=== PATIENT | female | born 1985 | race Caucasian/White ===

== ENCOUNTER 2017-08-02 05:47 | Emergency (ER) | payer OTHER ==
--- NOTE | 2017-08-02 06:22 | ER ---
Nurse's Notes [facility] Name: Daisy Guevara Age: 31 yrs Sex: Female : 1985 Arrival Date: 08/02/2017 Time: 05:51 Bed 20 Private MD: Diagnosis: Dental Pain Presentation: 08/02 06:02 Presenting complaint: Patient states: she is having tooth abscess/swelling for 1 week. mg2 she took 1,200 mg of brufen \T\ 0400H. She had 2 doses of amoxicillin already. Transition of care: patient was not received from another setting of care. Onset of symptoms was July 27, 2017. Initial Sepsis Screen: Does the patient meet any 2 criteria? No. Patient's initial sepsis screen is negative. Does the patient have a suspected source of infection? No. Patient's initial sepsis screen is negative. Care prior to arrival: Medication(s) given: Motrin, 1200. 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 - Social history:: Smoking status: Patient uses tobacco products, few sticks a day. Screenin:11 Abuse screen: Denies threats or abuse. Denies injuries from another. Nutritional mg2 screening: No deficits noted. Tuberculosis screening: No symptoms or risk factors identified. Fall Risk None identified. Assessment: 06:08 General: Appears in no apparent distress. comfortable, Behavior is calm, cooperative. mg2 Pain: Complains of pain in tooth Pain does not radiate. Pain currently is 1 out of 10 on a pain scale. Quality of pain is described as heavy, pressure, Pain began 1 week ago Is intermittent, Alleviated by medications, Also complains of tooth abscess. Neuro: Level of Consciousness is awake, alert, obeys commands, Oriented to person, place, time. Cardiovascular: Capillary refill < 3 seconds Patient's skin is warm and dry. Respiratory: Airway is patent Respiratory effort is even, unlabored, Respiratory pattern is regular, symmetrical. GI: No signs and/or symptoms were reported involving the gastrointestinal system. : No signs and/or symptoms were reported regarding the genitourinary system. EENT: No signs and/or symptoms were reported regarding the EENT system. Derm: Skin is intact, Skin is pink, warm \T\ dry. normal. Musculoskeletal: No signs and/or symptoms reported regarding the musculoskeletal system. Vital Signs: 06:07 BP 128 / 85; Pulse 69; Resp 18; Temp 98.2; Pulse Ox 97% ; Weight 65.77 kg; Height 5 ft. mg2 7 in. (170.18 cm); Pain 04/07; 06:07 Body Mass Index 22.71 (65.77 kg, 170.18 cm) mg2 ED Course: 05:51 Patient arrived in ED. al2 06:02 Francesco Palafox, KACY is Primary Nurse. mg2 06:05 Triage completed. mg2 06:07 Jason Pepe PA is PHCP. cp 06:07 Eric Poe MD is Attending Physician. cp 06:08 Arm band placed on. mg2 06:13 Patient has correct armband on for positive identification. Bed in low position. Call mg2 light in reach. 06:35 No provider procedures requiring assistance completed. Patient did not have IV access mg2 during this emergency room visit. Administered Medications: No medications were administered Outcome: 06:22 Discharge ordered by . cp 06:34 Discharged to home ambulatory. mg2 06:34 Condition: stable 06:34 Discharge instructions given to patient, Instructed on discharge instructions, follow up and referral plans. Demonstrated understanding of instructions, follow-up care, medications, Prescriptions given X 2. 06:35 Patient left the ED. mg2 Signatures: Jason Pepe PA PA cp Love, Angelica al2 Francesco Palafox, RN RN mg2
--- NOTE | 2017-08-02 06:22 | EDPHYS ---
Physician Documentation [facility] Name: Daisy Guevara Age: 31 yrs Sex: Female : 1985 Arrival Date: 08/02/2017 Time: 05:51 Bed 20 Private MD: ED Physician Eric Poe HPI: 08/02 06:15 This 31 yrs old Female presents to ER via Ambulatory with complaints of cp Toothache. 06:15 The patient presents with pain. The problem is located in the left upper jaw. Onset: cp The symptoms/episode began/occurred gradually. Duration: The symptoms are continuous. Associated signs and symptoms: Pertinent negatives: anorexia, dysphagia, fever, inability to eat. Severity of symptoms: in the emergency department the symptoms are unchanged, despite home interventions. Patient reports she started taking Amoxicillin given to her by . 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 - Social history:: Smoking status: Patient uses tobacco products, few sticks a day. ROS: 06:17 Eyes: Negative for injury, pain, redness, and discharge. cp 06:17 Constitutional: Negative for body aches, chills, fever, poor PO intake. 06:17 ENT: Positive for dental pain, Negative for sore throat, difficulty swallowing, difficulty handling secretions. 06:17 Respiratory: Negative for cough, shortness of breath, wheezing. 06:17 Abdomen/GI: Negative for abdominal pain, nausea, vomiting, and diarrhea. 06:17 Skin: Negative for cellulitis, jaundice, swelling. 06:17 Neuro: Negative for altered mental status, headache. 06:17 All other systems are negative. Exam: 06:18 Head/Face: Normocephalic, atraumatic. cp 06:18 Constitutional: The patient appears in no acute distress, alert, awake, non-toxic, well developed, well nourished. 06:18 Eyes: Periorbital structures: appear normal, Conjunctiva: normal, no exudate, no injection, Sclera: no appreciated abnormality, Lids and lashes: appear normal, bilaterally. 06:18 ENT: External ear(s): are unremarkable, Ear canal(s): are normal, clear, TM's: bulging, is not appreciated, bilaterally, dullness, is not appreciated, bilaterally, erythema, is not appreciated, bilaterally, Nose: is normal, Mouth: Lips: moist, Oral mucosa: pink and intact, moist, Gums: normal with healthy appearance, Tongue: is normal, abscess, is not appreciated, Posterior pharynx: Airway: no evidence of obstruction, patent, Tonsils: are normal in appearance, Uvula: midline, swelling, is not appreciated, erythema, is not appreciated, exudate, is not appreciated, Dental exam: abscess, is not appreciated, dental caries, that is moderate, diffusely, fractured teeth are noted, specifically the upper left first molar (#14), pain, that is mild, specifically in the upper left first molar (#14) and upper left second molar (#15), Voice: is normal. 06:18 Neck: ROM/movement: is normal, is supple, without pain, no range of motions limitations, no meningismus, no nuchal rigidity, Lymph nodes: no appreciated lymphadenopathy. 06:18 Chest/axilla: Inspection: normal, Palpation: is normal, no crepitus, no tenderness. 06:18 Cardiovascular: Rate: normal, Rhythm: regular. 06:18 Respiratory: the patient does not display signs of respiratory distress, Respirations: cp normal, no use of accessory muscles, no retractions, no splinting, no tachypnea, Breath sounds: are clear throughout, no decreased breath sounds, no stridor, no wheezing. 06:18 Abdomen/GI: Exam negative for discomfort, distension, guarding, Inspection: abdomen appears normal. 06:18 Skin: cellulitis, is not appreciated, no rash present. Vital Signs: 06:07 BP 128 / 85; Pulse 69; Resp 18; Temp 98.2; Pulse Ox 97% ; Weight 65.77 kg; Height 5 ft. mg2 7 in. (170.18 cm); Pain 1/10; 06:07 Body Mass Index 22.71 (65.77 kg, 170.18 cm) mg2 MDM: 06:08 Patient medically screened. cp 06:15 Differential diagnosis: dental caries, gingivitis, dental abscess, pericoronitis, cp gingivostomatitis. 06:20 Data reviewed: vital signs, nurses notes, and as a result, I will discharge patient. cp 06:20 Counseling: I had a detailed discussion with the patient and/or guardian regarding: the cp historical points, exam findings, and any diagnostic results supporting the discharge/admit diagnosis, the need for outpatient follow up, for definitive care, a dentist, to return to the emergency department if symptoms worsen or persist or if there are any questions or concerns that arise at home. Administered Medications: No medications were administered Disposition: 08/02/17 06:22 Discharged to Home. Impression: Dental Pain. - Condition is Stable. - Discharge Instructions: Dental Pain. - Prescriptions for Amoxicillin 875 mg Oral Tablet - take 1 tablet by ORAL route every 12 hours for 10 days; 20 tablet. Naprosyn 500 mg Oral Tablet - take 1 tablet by ORAL route 2 times per day take with food; 500 tablet. - Medication Reconciliation Form, Thank You Letter, Antibiotic Education, Prescription Opioid Use form. - Follow up: Private Physician; When: Dentist, 1-2 days; Reason: Recheck today's complaints. Addendum: 08/08/2017 01:54 Co-signature as Attending Physician, Eric Poe MD. m a2 Signatures: Jason Pepe PA PA cp Eric Poe MD MD ma2 Francesco Palafox RN RN mg2 Corrections: (The following items were deleted from the chart) 08/02 06:35 06:22 08/02/2017 06:22 Discharged to Home. Impression: Dental Pain. Condition is mg2 Stable. Forms are Medication Reconciliation Form, Thank You Letter, Antibiotic Education, Prescription Opioid Use. Follow up: Private Physician; When: Dentist, 1-2 days; Reason: Recheck today's complaints. cp
[2017-08-02 06:39] VITALS: BP 128/85; TEMP 98.2; O2SAT 97
== END 2017-08-02 06:35 | disposition home or self-care (01) ==
LOC: ER 05:47
DX: S02.5XXA Fracture of tooth (traumatic), initial encounter for closed fracture (principal); Z91.012 Allergy to eggs; Z91.018 Allergy to other foods
CPT/HCPCS: 99282

== ENCOUNTER 2018-03-30 07:56 | Emergency (ER) | payer OTHER ==
--- NOTE | 2018-03-30 08:59 | ER ---
Nurse's Notes [facility] Name: Daisy Guevara Age: 32 yrs Sex: Female : 1985 Arrival Date: 03/30/2018 Time: 08:02 Bed 18 Private MD: Paul Cao Diagnosis: Dental caries;Dental caries, unspecified Presentation: 03/30 08:10 Presenting complaint: Patient states: "I have two abscesses because I have bad teeth, ss and the pain really isn't bothering me, but the fatigue. I feel like i'm walking through pudding and I'm worried about sepsis.". Denies fever. Transition of care: patient was not received from another setting of care. Onset of symptoms was March 29, 2017. Risk Assessment: Do you want to hurt yourself or someone else? Patient reports no desire to harm self or others. Initial Sepsis Screen: Does the patient meet any 2 criteria? No. Patient's initial sepsis screen is negative. Does the patient have a suspected source of infection? No. Patient's initial sepsis screen is negative. Care prior to arrival: None. 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 - Social history:: Smoking status: Patient uses tobacco products, smokes one-half pack cigarettes per day. - Ebola Screening: : Patient denies exposure to infectious person Patient denies travel to an Ebola-affected area in the 21 days before illness onset. - Family history:: not pertinent. Screenin:49 Abuse screen: Denies threats or abuse. Denies injuries from another. Nutritional sv screening: No deficits noted. Tuberculosis screening: No symptoms or risk factors identified. Fall Risk None identified. Assessment: 08:59 General: Appears in no apparent distress. Behavior is calm, cooperative. Pain: Pain hb currently is 2 out of 10 on a pain scale. Neuro: Level of Consciousness is awake, alert, obeys commands, Oriented to person, place, time, situation. Cardiovascular: Capillary refill < 3 seconds Patient's skin is warm and dry. Respiratory: Airway is patent Respiratory effort is even, unlabored, Respiratory pattern is regular, symmetrical. GI: No signs and/or symptoms were reported involving the gastrointestinal system. : No signs and/or symptoms were reported regarding the genitourinary system. EENT: Reports bilateral upper molar pain, bilateral facial swelling. Derm: Skin is intact, is healthy with good turgor. Musculoskeletal: No signs and/or symptoms reported regarding the musculoskeletal system. Vital Signs: 08:18 BP 141 / 90; Pulse 95; Resp 15; Temp 98.4(TE); Pulse Ox 99% on R/A; Weight 74.84 kg; ss Height 5 ft. 6 in. (167.64 cm); Pain 2/10; 08:18 Body Mass Index 26.63 (74.84 kg, 167.64 cm) ED Course: 08:02 Patient arrived in ED. sb2 08:02 Pual Cao DO is Private Physician. sb2 08:18 Arm band placed on right wrist. ss 08:20 Yaneth Rivera RN is Primary Nurse. sv 08:20 Jason Husain MD is Attending Physician. yadi 08:23 Triage completed. ss 08:48 ED physician to see patient. sv 08:49 Patient has correct armband on for positive identification. Bed in low position. Head sv of bed elevated. 08:58 Paul Cao DO is Referral Physician. yadi 08:59 No provider procedures requiring assistance completed. Patient did not have IV access hb during this emergency room visit. 09:00 Dandre Alicia DDS is Referral Physician. yadi Administered Medications: 08:57 Drug: Augmentin 875 mg Route: PO; hb 08:57 Drug: Motrin 600 mg Route: PO; hb Outcome: 08:59 Discharge ordered by . yadi 09:12 Patient left the ED. sv 09:12 Discharged to home ambulatory. sv 09:12 Condition: stable 09:12 Discharge instructions given to patient, Instructed on discharge instructions, follow up and referral plans. medication usage, Demonstrated understanding of instructions, follow-up care, medications, Prescriptions given X 2. Signatures: Yaneth iRvera RN RN sv Anderson, Corey, MD MD cha Smirch, Shelby, RN RN ss Emily Cueva, RN RN hb Kandy Guy sb2
--- NOTE | 2018-03-30 08:59 | EDPHYS ---
Physician Documentation [facility] Name: Daisy Guevara Age: 32 yrs Sex: Female : 1985 Arrival Date: 03/30/2018 Time: 08:02 Bed 18 Private MD: [facility] ED Physician Jason Husain HPI: 03/30 08:53 This 32 yrs old Female presents to ER via Ambulatory with complaints of yadi Toothache. 08:53 The patient presents with pain, swelling. The problem is located in the lower right yadi second molar and lower right third molar. Onset: The symptoms/episode began/occurred 2 day(s) ago. Duration: The symptoms are continuous, and are steadily getting worse. Modifying factors: The symptoms are alleviated by nothing, the symptoms are aggravated by chewing, talking. Associated signs and symptoms: The patient has no apparent associated signs or symptoms. Severity of symptoms: At their worst the symptoms were mild, in the emergency department the symptoms are unchanged. The patient has experienced similar episodes in the past, a few times. 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 - Social history:: Smoking status: Patient uses tobacco products, smokes one-half pack cigarettes per day. - Ebola Screening: : Patient denies exposure to infectious person Patient denies travel to an Ebola-affected area in the 21 days before illness onset. - Family history:: not pertinent. ROS: 08:53 Constitutional: Negative for fever, chills, and weight loss, Eyes: Negative for injury, yadi pain, redness, and discharge, Neck: Negative for injury, pain, and swelling, Cardiovascular: Negative for chest pain, palpitations, and edema, Respiratory: Negative for shortness of breath, cough, wheezing, and pleuritic chest pain, Abdomen/GI: Negative for abdominal pain, nausea, vomiting, diarrhea, and constipation, Back: Negative for injury and pain, : Negative for injury, bleeding, discharge, and swelling, MS/Extremity: Negative for injury and deformity, Skin: Negative for injury, rash, and discoloration, Neuro: Negative for headache, weakness, numbness, tingling, and seizure, Psych: Negative for depression, anxiety, suicide ideation, homicidal ideation, and hallucinations, Allergy/Immunology: Negative for hives, rash, and allergies, Endocrine: Negative for neck swelling, polydipsia, polyuria, polyphagia, and marked weight changes, Hematologic/Lymphatic: Negative for swollen nodes, abnormal bleeding, and unusual bruising. 08:53 ENT: Positive for dental pain. Exam: 08:53 Constitutional: This is a well developed, well nourished patient who is awake, alert, yadi and in no acute distress. Eyes: Pupils equal round and reactive to light, extra-ocular motions intact. Lids and lashes normal. Conjunctiva and sclera are non-icteric and not injected. Cornea within normal limits. Periorbital areas with no swelling, redness, or edema. Neck: Trachea midline, no thyromegaly or masses palpated, and no cervical lymphadenopathy. Supple, full range of motion without nuchal rigidity, or vertebral point tenderness. No Meningismus. Chest/axilla: Normal chest wall appearance and motion. Nontender with no deformity. No lesions are appreciated. Cardiovascular: Regular rate and rhythm with a normal S1 and S2. No gallops, murmurs, or rubs. Normal PMI, no JVD. No pulse deficits. Respiratory: Lungs have equal breath sounds bilaterally, clear to auscultation and percussion. No rales, rhonchi or wheezes noted. No increased work of breathing, no retractions or nasal flaring. Abdomen/GI: Soft, non-tender, with normal bowel sounds. No distension or tympany. No guarding or rebound. No evidence of tenderness throughout. Back: No spinal tenderness. No costovertebral tenderness. Full range of motion. Skin: Warm, dry with normal turgor. Normal color with no rashes, no lesions, and no evidence of cellulitis. MS/ Extremity: Pulses equal, no cyanosis. Neurovascular intact. Full, normal range of motion. Neuro: Awake and alert, GCS 15, oriented to person, place, time, and situation. Cranial nerves II-XII grossly intact. Motor strength 5/5 in all extremities. Sensory grossly intact. Cerebellar exam normal. Normal gait. Psych: Awake, alert, with orientation to person, place and time. Behavior, mood, and affect are within normal limits. 08:53 Head/face: Noted is tenderness, that is mild, of the right jaw. Vital Signs: 08:18 BP 141 / 90; Pulse 95; Resp 15; Temp 98.4(TE); Pulse Ox 99% on R/A; Weight 74.84 kg; ss Height 5 ft. 6 in. (167.64 cm); Pain 2/10; 08:18 Body Mass Index 26.63 (74.84 kg, 167.64 cm) ss MDM: 08:20 Patient medically screened. yadi 08:55 Data reviewed: vital signs, nurses notes. yadi Administered Medications: 08:57 Drug: Augmentin 875 mg Route: PO; hb 08:57 Drug: Motrin 600 mg Route: PO; hb Disposition: 03/30/18 08:59 Discharged to Home. Impression: Dental caries, Dental caries, unspecified. - Condition is Stable. - Discharge Instructions: Dental Abscess, Dental Caries, Adult, Dental Pain, Dental Pain, [id number], Diet and Dental Disease. - Prescriptions for Augmentin 875- 125 mg Oral Tablet - take 1 tablet by ORAL route every 12 hours for 10 days; 20 tablet. Tylenol- Codeine #3 300-30 mg Oral Tablet - take 2 tablet by ORAL route every 6 hours As needed; 30 tablet. - Medication Reconciliation Form, Thank You Letter, Antibiotic Education, Prescription Opioid Use form. - Follow up: Paul Cao DO; When: 2 - 3 days; Reason: Recheck today's complaints, Re-evaluation by your physician. Follow up: Dandre Alicia DDS; When: 1 - 2 days; Reason: Recheck today's complaints, Re-evaluation by your physician. - Problem is new. - Symptoms have improved. Signatures: Yaneth Rivera RN RN Jason Husain MD MD cha Smirch, Shelby, RN RN Emily Cueva RN RN Corrections: (The following items were deleted from the chart) 09:00 08:59 03/30/2018 08:59 Discharged to Home. Impression: Dental caries; Dental caries, yadi unspecified. Condition is Stable. Forms are Medication Reconciliation Form, Thank You Letter, Antibiotic Education, Prescription Opioid Use. Follow up: Paul Cao; When: 2 - 3 days; Reason: Recheck today's complaints, Re-evaluation by your physician. Problem is new. Symptoms have improved. [facility] 09:12 09:00 03/30/2018 08:59 Discharged to Home. Impression: Dental caries; Dental caries, sv unspecified. Condition is Stable. Discharge Instructions: Dental Abscess, Dental Caries, Adult, Dental Pain, Dental Pain, [id number], Diet and Dental Disease. Prescriptions for Augmentin 875-125 mg Oral Tablet - take 1 tablet by ORAL route every 12 hours for 10 days; 20 tablet, Tylenol-Codeine #3 300-30 mg Oral Tablet - take 2 tablet by ORAL route every 6 hours As needed; 30 tablet. and Forms are Medication Reconciliation Form, Thank You Letter, Antibiotic Education, Prescription Opioid Use. Follow up: Paul Cao; When: 2 - 3 days; Reason: Recheck today's complaints, Re-evaluation by your physician. Follow up: Dandre Alicia; When: 1 - 2 days; Reason: Recheck today's complaints, Re-evaluation by your physician. Problem is new. Symptoms have improved. [facility]
[2018-03-30] MEDS ORDERED: IBUPROFEN 200 MG TAB PO ONE (09:05)
[2018-03-30] MEDS ORDERED: AMOX/K CLAV 875 MG TAB ONE (09:05)
[2018-03-30 09:27] VITALS: BP 141/90; TEMP 98.4; O2SAT 99
== END 2018-03-30 09:12 | disposition home or self-care (01) ==
LOC: ER 07:56
DX: K02.9 Dental caries, unspecified (principal); E03.9 Hypothyroidism, unspecified; F17.210 Nicotine dependence, cigarettes, uncomplicated; Z91.012 Allergy to eggs
CPT/HCPCS: 99283

== ENCOUNTER 2019-04-23 16:35 | Emergency (ER) | payer OTHER ==
--- OUTSIDE RECORDS SUMMARY | 2019-04-23 16:37 | XMS REPORT ---
:1985 Author Organization [employer] Care Team Providers Name Role Phone Nash [facility] Provider Role Unavailable Allergies, Adverse Reactions, Alerts Substance Reaction Event Type N.K.D.A. Info Not Available Non Drug Allergy Problems Problem Type Condition Code Onset Dates Condition Status Problem Vitamin D deficiency E55.9 Active Problem Malaise and fatigue R53.81 Active Assessment Gingival nodule K06.8 Active Assessment Decay, teeth K02.9 Active Problem Noncompliance w/medication Z91.14 Active treatment due to intermit use of medication Problem Depression with anxiety F41.8 Active Problem Hypocalcemia E83.51 Active Problem Hyperlipidemia, mixed E78.2 Active Problem Hypothyroidism E03.9 Active Problem Attention deficit hyperactivity F90.9 Active disorder (ADHD), unspecified ADHD type Problem Tobacco use disorder F17.200 Active Medications Medication Code Code Instructions Start End Status Dosage System Date Date Hair Skin Nails [facility] [address] Active not defined Vitamin B12 [facility] [address] Active not defined BuPROPion HCl ER ND 61821436856 100 MG Orally Oct 22, Active 1 tablet (SR) Once a day 2019 in the morning Zoloft ND 67625074416 50 MG Orally Active 1 tablet Once a day Levothyroxine ND 29054397119 25 MCG Orally Active 1 tablet Sodium Once a day on an empty stomach in the morning Vyvanse ND 64614859826 30 MG Orally Oct 22, Active 1 capsule Once a day 2019 in the morning Simvastatin ND 43660866140 40 MG Orally Active 1 tablet Once a day in the evening Vitamin D3 [facility] [address] Active not defined Results No Known Results Summary Purpose [employer]Clinical[employer] Submission
--- OUTSIDE RECORDS SUMMARY | 2019-04-23 16:38 | XMS REPORT ---
:1985 Author Organization eClinicalWorks Care Team Providers Name Role Phone Nash [facility] Provider Role Unavailable Allergies, Adverse Reactions, Alerts Substance Reaction Event Type N.K.D.A. Info Not Available Non Drug Allergy Problems Problem Type Condition Code Onset Dates Condition Status Problem Vitamin D deficiency E55.9 Active Problem Malaise and fatigue R53.81 Active Problem Noncompliance w/medication Z91.14 Active treatment due to intermit use of medication Problem Depression with anxiety F41.8 Active Problem Hypocalcemia E83.51 Active Problem Hyperlipidemia, mixed E78.2 Active Problem Hypothyroidism E03.9 Active Problem Attention deficit hyperactivity F90.9 Active disorder (ADHD), unspecified ADHD type Problem Tobacco use disorder F17.200 Active Assessment Vitamin D deficiency E55.9 Active Assessment Malaise and fatigue R53.81 Active Assessment Adult BMI 27.0-27.9 kg/sq m Z68.27 Active Assessment Noncompliance w/medication Z91.14 Active treatment due to intermit use of medication Assessment Hyperlipidemia, mixed E78.2 Active Assessment 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 Assessment Tobacco use disorder F17.200 Active Assessment Depression with anxiety F41.8 Active Assessment Hypothyroidism E03.9 Active Assessment Attention deficit hyperactivity F90.9 Active disorder (ADHD), unspecified ADHD type Medications Medication Code Code Instructions Start End Status Dosage System Date Date Simvastatin ND 09090555871 40 MG Orally Active 1 tablet Once a day in the evening Vitamin D3 [facility] [address] Active not defined Vitamin B12 [facility] [address] Active not defined Vyvanse ND 58063060519 40 MG Orally Feb 14, Active 1 capsule Once a day 2018 in the morning CREELER Thyroid ND 03299227338 15 MG Orally Feb 14, Active 1 tablet Once a day 2018 on an empty stomach BuPROPion HCl ER ND 74796044450 100 MG Orally Active 1 tablet (SR) Once a day in the morning Zoloft ND 13365242584 50 MG Orally Active 1 tablet Once a day Hair Skin Nails [facility] [address] Active not defined Levothyroxine [facility] 89100990117 25 MCG Orally Inactive 1 tablet Sodium Once a day on an empty stomach in the morning Results No Known Results Summary Purpose eClinicalWorks Submission
--- OUTSIDE RECORDS SUMMARY | 2019-04-23 16:38 | XMS REPORT ---
:1985 Author Organization eClinicalWorks Care Team Providers Name Role Phone Cao, [facility] Provider Role Unavailable Allergies No Known Allergies Problems Problem Type Condition Code Onset Dates [...] use disorder F17.200 Active Medications Medication Code System Code Instructions Start End Date Status Dosage Date Tamiflu [facility] 04669787624 75 MG Orally Apr 19, Active 1 capsule Twice a day 2019 Results No Known Results Summary Purpose eClinicalWorks Submission
--- OUTSIDE RECORDS SUMMARY | 2019-04-23 16:38 | XMS REPORT ---
:1985 Author Organization eClinicalWorks Care Team Providers Name Role Phone Nash [facility] Provider Role Unavailable Allergies, Adverse Reactions, Alerts Substance Reaction Event Type N.K.D.A. Info Not Available Non Drug Allergy Problems Problem Type Condition Code Onset Dates Condition Status Problem Vitamin D deficiency E55.9 Active Problem Malaise and fatigue R53.81 Active Problem Noncompliance w/medication Z91.14 Active treatment due to intermit use of medication Assessment Statin intolerance Z78.9 Active Problem Depression with anxiety F41.8 Active Problem [...] Start End Status Dosage System Date Date Zoloft [facility] 02234335610 50 MG Orally Active 1 tablet Once a day Simvastatin ND 83443748658 40 MG Orally Active 1 tablet Once a day in the evening [employer] Thyroid ND 75593746996 15 MG Orally Inactive 1 tablet Once a day on an empty stomach BuPROPion HCl ND 14218126691 150 MG Orally Active 1 tablet ER (SR) Once a day in the morning Vitamin B12 [facility] [address] Active not defined Vyvanse ND 56107430254 60 MG Orally Apr 11, Active 1 capsule Once a day 2019 in the morning Hair Skin Nails [facility] [address] Active not defined Tirosint [facility] 04999174137 25 MCG Orally Mar 15 Active 1 capsule Once a day 2018 in the morning on an empty stomach Vitamin D3 [facility] [address] Active not defined Results No Known Results Summary Purpose eClinicalWorks Submission
--- OUTSIDE RECORDS SUMMARY | 2019-04-23 16:38 | XMS REPORT ---
:1985 Author Organization eClinicalWorks Care Team Providers Name Role Phone Nash [facility] Provider Role Unavailable Allergies No Known Allergies Problems Problem Type Condition Code Onset Dates Condition Status Problem Vitamin D deficiency E55.9 Active Problem Malaise and fatigue R53.81 Active Assessment Hyperlipidemia, mixed E78.2 Active Problem Noncompliance w/medication Z91.14 Active treatment due to intermit use of medication Problem Depression with anxiety F41.8 Active Problem Hypocalcemia E83.51 Active Problem Hyperlipidemia, mixed E78.2 Active Problem Hypothyroidism E03.9 Active Problem Attention deficit hyperactivity F90.9 Active disorder (ADHD), unspecified ADHD type Problem Tobacco use disorder F17.200 Active Medications Medication Code System Code Instructions Start End Date Status Dosage Date Tirosint [facility] 20193030000 25 MCG Orally Dec , Active 1 capsule Once a day 2018 in the morning on an empty stomach Results No Known Results Summary Purpose [employer] Submission
--- OUTSIDE RECORDS SUMMARY | 2019-04-23 16:38 | XMS REPORT ---
:1985 Author Organization eClinicalWorks Care Team Providers Name Role Phone Nash [facility] Provider Role Unavailable Allergies, Adverse Reactions, Alerts [...] Start End Status Dosage System Date Date [facility] 45444302685 50 MG Orally Mar 14, Active 1 capsule Once a day 2019 in the morning BuPROPion HCl ND 37256982112 100 MG Orally Active 1 tablet ER (SR) Once a day in the morning [employer] Thyroid [facility] 91522289868 15 MG Orally Active 1 tablet Once a day on an empty stomach Zoloft ND 35117543466 50 MG Orally Active 1 tablet Once a day Hair Skin Nails [facility] [address] Active not defined Vitamin B12 [facility] [address] Active not defined Vitamin D3 [facility] [address] Active not defined Simvastatin [facility] 59367014196 40 MG Orally Active 1 tablet Once a day in the evening Results No Known Results Summary Purpose eClinicalWorks Submission
--- OUTSIDE RECORDS SUMMARY | 2019-04-23 16:38 | XMS REPORT ---
:1985 Author Organization eClinicalWorks Care Team Providers Name Role Phone Cao, [facility] Provider Role Unavailable Allergies No Known Allergies [...] Problem Tobacco use disorder F17.200 Active Medications No Known Medications Results No Known Results Summary Purpose eClinicalWorks Submission
--- OUTSIDE RECORDS SUMMARY | 2019-04-23 16:38 | XMS REPORT ---
:1985 Author Organization eClinicalWorks Care Team Providers Name Role Phone Cao, [facility] Provider Role Unavailable Allergies No Known [...]
[2019-04-23] MEDS ORDERED: IPRATROPIUM BROM 0.5MG/2.5ML ONE (17:48)
[2019-04-23] MEDS ORDERED: ALBUTEROL 2.5 MG/3 ML NEB SOL ONE (17:48)
[2019-04-23] MEDS ORDERED: AMOX/K CLAV 875 MG TAB ONE (17:49)
--- NOTE | 2019-04-23 18:02 | ER ---
Nurse's Notes [facility] Name: Daisy Guevara Age: 33 yrs Sex: Female : 1985 Arrival Date: 04/23/2019 Time: 16:37 Bed 12 Private MD: Paul Cao Diagnosis: Acute sinusitis Presentation: 04/23 17:17 Presenting complaint: Patient states: sinus pressure, weakness, fatigue, green mucus ss from nose. Transition of care: patient was not received from another setting of care. Onset of symptoms was April 02, 2019. Risk Assessment: Do you want to hurt yourself or someone else? Patient reports no desire to harm self or others. Initial Sepsis Screen: Does the patient meet any 2 criteria? No. Patient's initial sepsis screen is negative. Does the patient have a suspected source of infection? No. Patient's initial sepsis screen is negative. Care prior to arrival: None. 17:17 Method Of Arrival: Ambulatory ss 17:17 Acuity: FLORINDA 4 ss Triage Assessment: 17:21 General: Appears in no apparent distress. Behavior is calm, cooperative. Pain: Denies ss pain. ADMINISTRATIVE TECH: 17:22 LMP 03/29/2019 ss Historical: - Allergies: 17:21 EGG/POULTRY; ss - PMHx: 17:21 Hypothyroidism; Depression; Anxiety; High Cholesterol; ss - PSHx: 17:21 Hernia repair; ss - Immunization history:: Adult Immunizations up to date. - Coronavirus screen:: The patient has NOT traveled to [place], [place], or [place] in the past 14 days. Proceed with normal triage process as indicated. The patient has NOT had contact with known/suspected case of Coronavirus? Proceed with normal triage procedures. - Social history:: Smoking status: Patient reports the use of cigarette tobacco products, smokes one-half pack cigarettes per day. - Ebola Screening: : Patient negative for fever greater than or equal to 101.5 degrees Fahrenheit, and additional compatible Ebola Virus Disease symptoms Patient denies exposure to infectious person Patient denies travel to an Ebola-affected area in the 21 days before illness onset No symptoms or risks identified at this time. Screenin:30 Abuse screen: Denies threats or abuse. Denies injuries from another. Nutritional ss screening: No deficits noted. Tuberculosis screening: Never had TB. Fall Risk None identified. Assessment: 17:30 General: Appears uncomfortable, ill, Behavior is calm, cooperative, Reports feeling ill ss for. Neuro: Level of Consciousness is awake, alert, obeys commands. Respiratory: Respiratory effort is even, unlabored, Respiratory pattern is regular, symmetrical. Respiratory: Breath sounds are coarse in left posterior lower lobe, right posterior middle lobe and right posterior lower lobe. GI: Patient currently denies diarrhea, vomiting. EENT: Nares are clear Oral mucosa is moist. Derm: Skin is intact, is healthy with good turgor, Skin is dry, Skin is pink, warm \T\ dry. normal. Vital Signs: 17:22 BP 140 / 90; Pulse 84; Resp 18; Temp 97.7; Pulse Ox 99% ; Weight 81.65 kg; Height 5 ft. ss 7 in. (170.18 cm); Pain 0/10; 17:22 Body Mass Index 28.19 (81.65 kg, 170.18 cm) ss ED Course: 16:37 Patient arrived in ED. as 16:38 Paul Cao DO is Private Physician. as 17:16 Arm band placed on right wrist. ss 17:18 Triage completed. ss 17:24 Arabella Vidal FNP-C is PHCP. kb 17:24 Krzysztof Peñaloza MD is Attending Physician. kb 17:30 Patient has correct armband on for positive identification. Bed in low position. Call ss light in reach. 17:49 Chloe Parikh, RN is Primary Nurse. ss 17:58 Chest Pa And Lat (2 Views) XRAY In Process Unspecified. EDMS 18:02 Paul Cao DO is Referral Physician. kb 18:35 No provider procedures requiring assistance completed. Patient did not have IV access ss during this emergency room visit. Administered Medications: 18:03 Drug: DuoNeb (3:1) (2.5 mg - 0.5 mg) 3 ml Route: Nebulizer; ss 18:37 Follow up: Response: No adverse reaction; No adverse reaction, patient denies SOB/ ss difficulty breathing 18:03 Drug: Augmentin 875 mg Route: PO; ss 18:37 Follow up: Response: Medication administered at discharge. ss Outcome: 18:02 Discharge ordered by . kb 18:35 Discharged to home ambulatory. ss 18:35 Condition: good 18:35 Discharge instructions given to patient, family, Instructed on discharge instructions, follow up and referral plans. medication usage, Demonstrated understanding of instructions, follow-up care, medications, Prescriptions given X 2. 18:37 Patient left the ED. ss Signatures: Dispatcher [employer] EDArabella Schwartz, DOCUMENT CONTROL ASSISTANT-C DOCUMENT CONTROL ASSISTANT-Andreia Ann Shelby, RN RN ss
--- NOTE | 2019-04-23 18:02 | EDPHYS ---
Physician Documentation [facility] Name: Daisy Guevara Age: 33 yrs Sex: Female : 1985 Arrival Date: 04/23/2019 Time: 16:37 Bed 12 Private MD: Nash [facility] ED Physician Krzysztof Peñaloza HPI: 04/23 17:51 This 33 yrs old Female presents to ER via Ambulatory with complaints of Sinus kb Congestion, Flu Symptoms. 17:51 The patient or guardian reports cough, that is intermittent, described as moderate, kb with no sputum, flu symptoms, low-grade fever, myalgias. Onset: The symptoms/episode began/occurred 3 week(s) ago. Severity of symptoms: At their worst the symptoms were moderate, in the emergency department the symptoms are unchanged. Modifying factors: The symptoms are alleviated by nothing, the symptoms are aggravated by nothing. Associated signs and symptoms: Pertinent positives: earache, fever, rhinorrhea, Pertinent negatives: chest pain, diarrhea, nausea, sore throat, vomiting. The patient has not experienced similar symptoms in the past. The patient has not recently seen a physician. Pt reports she has had a sinus infection for 3 weeks. States she was getting better, then it started getting worse. REports she was started on Tamiflu for the flu a few days ago, but the "flu symptoms" have gotten better. . 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 - Coronavirus screen:: The patient has NOT traveled to [place], [place], or [place] in the past 14 days. Proceed with normal triage process as indicated. The patient has NOT had contact with known/suspected case of Coronavirus? Proceed with normal triage procedures. - Social history:: Smoking status: Patient reports the use of cigarette tobacco products, smokes one-half pack cigarettes per day. - Ebola Screening: : Patient negative for fever greater than or equal to 101.5 degrees Fahrenheit, and additional compatible Ebola Virus Disease symptoms Patient denies exposure to infectious person Patient denies travel to an Ebola-affected area in the 21 days before illness onset No symptoms or risks identified at this time. ROS: 17:51 Neck: Negative for injury, pain, and swelling, Cardiovascular: Negative for chest pain, kb palpitations, and edema, Abdomen/GI: Negative for abdominal pain, nausea, vomiting, diarrhea, and constipation, Back: Negative for injury and pain, : Negative for injury, bleeding, discharge, and swelling, MS/Extremity: Negative for injury and deformity, Skin: Negative for injury, rash, and discoloration, Neuro: Negative for headache, weakness, numbness, tingling, and seizure. 17:51 Constitutional: Positive for body aches, fatigue, fever, malaise. 17:51 ENT: Positive for rhinorrhea, sinus congestion, sinus pain. 17:51 Respiratory: Positive for cough, Negative for dyspnea on exertion, hemoptysis, orthopnea, pleurisy, shortness of breath, sputum production, wheezing. Exam: 17:54 Constitutional: This is a well developed, well nourished patient who is awake, alert, kb and in no acute distress. Head/Face: Normocephalic, atraumatic. ENT: Nares patent. No nasal discharge, no septal abnormalities noted. Tympanic membranes are normal and external auditory canals are clear. Oropharynx with no redness, swelling, or masses, exudates, or evidence of obstruction, uvula midline. Mucous membranes moist. Neck: Trachea midline, no thyromegaly or masses palpated, and no cervical lymphadenopathy. Supple, full range of motion without nuchal rigidity, or vertebral point tenderness. No Meningismus. Chest/axilla: Normal chest wall appearance and motion. Nontender with no deformity. No lesions are appreciated. Cardiovascular: Regular rate and rhythm with a normal S1 and S2. No gallops, murmurs, or rubs. Normal PMI, no JVD. No pulse deficits. Abdomen/GI: Soft, non-tender, with normal bowel sounds. No distension or tympany. No guarding or rebound. No evidence of tenderness throughout. Back: No spinal tenderness. No costovertebral tenderness. Full range of motion. Skin: Warm, dry with normal turgor. Normal color with no rashes, no lesions, and no evidence of cellulitis. MS/ Extremity: Pulses equal, no cyanosis. Neurovascular intact. Full, normal range of motion. Neuro: Awake and alert, GCS 15, oriented to person, place, time, and situation. Cranial nerves II-XII grossly intact. Motor strength 5/5 in all extremities. Sensory grossly intact. Cerebellar exam normal. Normal gait. 17:54 Respiratory: the patient does not display signs of respiratory distress, Respirations: normal, Breath sounds: rhonchi, that are moderate, are heard in the right middle lobe, right lower lobe, right posterior middle lobe and right posterior lower lobe, wheezing: that is moderate, is heard in the right middle lobe, right lower lobe, right posterior middle lobe and right posterior lower lobe. Vital Signs: 17:22 BP 140 / 90; Pulse 84; Resp 18; Temp 97.7; Pulse Ox 99% ; Weight 81.65 kg; Height 5 ft. ss 7 in. (170.18 cm); Pain 0/10; 17:22 Body Mass Index 28.19 (81.65 kg, 170.18 cm) ss MDM: 17:24 Patient medically screened. kb 17:54 Data reviewed: vital signs, nurses notes. Data interpreted: Pulse oximetry: on room air kb is 99 %. Interpretation: normal. 18:01 Counseling: I had a detailed discussion with the patient and/or guardian regarding: the kb historical points, exam findings, and any diagnostic results supporting the discharge/admit diagnosis, radiology results, the need for outpatient follow up, a family practitioner, to return to the emergency department if symptoms worsen or persist or if there are any questions or concerns that arise at home. Special discussion: I discussed with the patient the need to follow-up with the PCP/specialist for the noted incidental finding on X-ray/CT scanning. 04/23 17:26 Order name: Chest Pa And Lat (2 Views) XRAY kb Administered Medications: 18:03 Drug: DuoNeb (3:1) (2.5 mg - 0.5 mg) 3 ml Route: Nebulizer; ss 18:37 Follow up: Response: No adverse reaction; No adverse reaction, patient denies SOB/ ss difficulty breathing 18:03 Drug: Augmentin 875 mg Route: PO; ss 18:37 Follow up: Response: Medication administered at discharge. ss Disposition: 21:13 Co-signature as Attending Physician, Krzysztof Peñaloza MD I agree with the assessment and kdr plan of care. Disposition: 04/23/19 18:02 Discharged to Home. Impression: Acute sinusitis. - Condition is Stable. - Discharge Instructions: Sinusitis, Adult, [id number]. - Prescriptions for Augmentin 875- 125 mg Oral Tablet - take 1 tablet by ORAL route every 12 hours for 10 days; 20 tablet. Albuterol Sulfate 90 mcg/actuation - inhale 1-2 puff by INHALATION route every 4-6 hours; 1 Inhaler. - Medication Reconciliation Form, Thank You Letter, Antibiotic Education, Prescription Opioid Use form. - Follow up: Emergency Department; When: As needed; Reason: Worsening of condition. Follow up: Paul Cao; When: 2 - 3 days; Reason: Recheck today's complaints, Continuance of care, Re-evaluation by your physician. Signatures: Dispatcher [employer] EDMS Arabella Vidal, TERRI-Bob EDOUARDP-Krzysztof Husain MD MD kdr Smirch, Shelby, RN RN ss Corrections: (The following items were deleted from the chart) 18:37 18:02 04/23/2019 18:02 Discharged to Home. Impression: Acute sinusitis. Condition is ss Stable. Discharge Instructions: Sinusitis, Adult, [id number]. Prescriptions for Augmentin 875-125 mg Oral Tablet - take 1 tablet by ORAL route every 12 hours for 10 days; 20 tablet, Albuterol Sulfate 90 mcg/actuation - inhale 1-2 puff by INHALATION route every 4-6 hours; 1 Inhaler. and Forms are Medication Reconciliation Form, Thank You Letter, Antibiotic Education, Prescription Opioid Use. Follow up: Emergency Department; When: As needed; Reason: Worsening of condition. Follow up: Paul Cao; When: 2 - 3 days; Reason: Recheck today's complaints, Continuance of care, Re-evaluation by your physician. kb
--- NOTE | 2019-04-23 18:26 | RAD REPORT ---
EXAM DESCRIPTION: Simint Pa And Lat (2 Views)04/23/2019 5:59 pm CLINICAL HISTORY: Cough COMPARISON: None FINDINGS: Calcified granuloma is present within the left upper lobe. Prominent right pericardiac opacity is present. The heart is normal size IMPRESSION: Prominent right pericardiac opacity. It is unclear if this all represents atypical appea ring epicardial fat or pneumonia. If clinically indicated further evaluation with unenhanced CT chest could be obtained
[2019-04-23 18:41] VITALS: BP 140/90; TEMP 97.7; O2SAT 99
== END 2019-04-23 18:37 | disposition home or self-care (01) ==
LOC: ER 16:35
DX: J01.90 Acute sinusitis, unspecified (principal); Z91.012 Allergy to eggs
CPT/HCPCS: 71046; 94640; 99284

== ENCOUNTER 2021-09-27 03:23 | Emergency (ER) | payer OTHER ==
--- NOTE | 2021-09-27 04:07 | EDPHYS ---
Physician Documentation [facility] Name: Daisy Guevara Age: 36 yrs Sex: Female : 1985 Arrival Date: 09/27/2021 Time: 03:24 Bed 6 Private MD: [facility] ED Physician Jason Husain HPI: 09/27 04:02 This 36 yrs old Female presents to ER via Unassigned with complaints of Post yadi Surgical Pain - dental. 04:02 The patient or guardian reports pain, swelling. The complaints affect the left cheek yadi and left jaw. Context of injury: The problem was sustained at dentist . Onset: The symptoms/episode began/occurred 2 day(s) ago. Associated signs and symptoms: The patient has no apparent associated signs or symptoms. Severity of symptoms: At their worst the symptoms were mild, moderate, in the emergency department the symptoms are unchanged. The patient has not experienced similar symptoms in the past. Historical: - Allergies: 04:22 EGG/POULTRY; lg3 - PMHx: 04:22 Anxiety; Depression; High Cholesterol; Hypothyroidism; lg3 - PSHx: 04:22 dental; lg3 - Immunization history:: Adult Immunizations up to date, Client reports having NOT received the Covid vaccine. - Social history:: Smoking status: Patient denies any tobacco usage or history of. Patient uses alcohol, street drugs. - Family history:: not pertinent. ROS: 04:02 Constitutional: Negative for fever, chills, and weight loss, Eyes: Negative for injury, yadi pain, redness, and discharge, Neck: Negative for injury, pain, and swelling, Cardiovascular: Negative for chest pain, palpitations, and edema, Respiratory: Negative for shortness of breath, cough, wheezing, and pleuritic chest pain, Abdomen/GI: Negative for abdominal pain, nausea, vomiting, diarrhea, and constipation, Back: Negative for injury and pain, : Negative for injury, bleeding, discharge, and swelling, MS/Extremity: Negative for injury and deformity, Skin: Negative for injury, rash, and discoloration, Neuro: Negative for headache, weakness, numbness, tingling, and seizure, Psych: Negative for depression, anxiety, suicide ideation, homicidal ideation, and hallucinations, Allergy/Immunology: Negative for hives, rash, and allergies, Endocrine: Negative for neck swelling, polydipsia, polyuria, polyphagia, and marked weight changes. 04:02 ENT: Positive for dental pain. Exam: 04:02 Constitutional: This is a well developed, well nourished patient who is awake, alert, yadi and in no acute distress. Eyes: Pupils equal round and reactive to light, extra-ocular motions intact. Lids and lashes normal. Conjunctiva and sclera are non-icteric and not injected. Cornea within normal limits. Periorbital areas with no swelling, redness, or edema. ENT: Nares patent. No nasal discharge, no septal abnormalities noted. Tympanic membranes are normal and external auditory canals are clear. Oropharynx with no redness, swelling, or masses, exudates, or evidence of obstruction, uvula midline. Mucous membranes moist. Neck: Trachea midline, no thyromegaly or masses palpated, and no cervical lymphadenopathy. Supple, full range of motion without nuchal rigidity, or vertebral point tenderness. No Meningismus. Chest/axilla: Normal chest wall appearance and motion. Nontender with no deformity. No lesions are appreciated. Cardiovascular: Regular rate and rhythm with a normal S1 and S2. No gallops, murmurs, or rubs. Normal PMI, no JVD. No pulse deficits. Respiratory: Lungs have equal breath sounds bilaterally, clear to auscultation and percussion. No rales, rhonchi or wheezes noted. No increased work of breathing, no retractions or nasal flaring. Abdomen/GI: Soft, non-tender, with normal bowel sounds. No distension or tympany. No guarding or rebound. No evidence of tenderness throughout. Back: No spinal tenderness. No costovertebral tenderness. Full range of motion. Skin: Warm, dry with normal turgor. Normal color with no rashes, no lesions, and no evidence of cellulitis. MS/ Extremity: Pulses equal, no cyanosis. Neurovascular intact. Full, normal range of motion. Neuro: Awake and alert, GCS 15, oriented to person, place, time, and situation. Cranial nerves II-XII grossly intact. Motor strength 5/5 in all extremities. Sensory grossly intact. Cerebellar exam normal. Normal gait. Psych: Awake, alert, with orientation to person, place and time. Behavior, mood, and affect are within normal limits. 04:02 Head/face: Noted is contusion, hematoma, swelling, that is moderate, of the left cheek and left jaw. Vital Signs: 04:19 BP 128 / 100; Pulse 82; Resp 17; Temp 98.2(O); Pulse Ox 95% on R/A; Weight 103.42 kg ll3 (R); Height 5 ft. 7 in. (170.18 cm) (R); 04:19 Body Mass Index 35.71 (103.42 kg, 170.18 cm) ll3 Martin Coma Score: 04:02 Eye Response: spontaneous(4). Verbal Response: oriented(5). Motor Response: obeys yadi commands(6). Total: 15. 04:05 Eye Response: spontaneous(4). Verbal Response: oriented(5). Motor Response: obeys yadi commands(6). Total: 15. MDM: 03:50 Patient medically screened. yadi 04:05 Differential diagnosis: Hematoma on. Data reviewed: vital signs, nurses notes. Data yadi interpreted: environmental monitoring specialist: rate is 69 beats/min, rhythm is regular, Pulse oximetry: on room air is 100 %. Counseling: I had a detailed discussion with the patient and/or guardian regarding: the historical points, exam findings, and any diagnostic results supporting the discharge/admit diagnosis, lab results. Administered Medications: 04:37 Drug: Clindamycin 300 mg Route: PO; lg3 04:37 Follow up: Response: No adverse reaction lg3 04:38 Drug: Demerol (meperidine) 50 mg Route: IM; Site: left gluteus; lg3 04:38 Follow up: Response: No adverse reaction lg3 04:38 Not Given (Patient Refused): Phenergan (promethazine) 25 mg IM once lg3 04:38 CANCELLED (med not avaliable ): Clindamycin 600 mg IM once lg3 Disposition Summary: 09/27/21 04:07 Discharge Ordered Location: Home yadi Problem: new yadi Symptoms: have improved yadi Condition: Stable yadi Diagnosis - Dental procedure status yaid Followup: yadi - With: Private Physician - When: 1 - 2 days - Reason: Recheck today's complaints, Continuance of care, Re-evaluation by your physician Discharge Instructions: - Discharge Summary Sheet yadi - Dental Caries, Adult yadi - Dental Extraction yadi - Dental Pain yadi - Dental Pain, [id number] yadi - Dental Caries, Adult, [id number] yadi Forms: - Medication Reconciliation Form yadi - Thank You Letter yadi - Antibiotic Education yadi - Prescription Opioid Use [facility] Prescriptions: - Clindamycin HCl 300 mg Oral Capsule - take 1 capsule by ORAL route every 6 hours for 10 days; 40 capsule; Refills: 0, aydi Product Selection Permitted Signatures: Jason Husain MD MD cha Gibson, Lacie RN RN lg3 Corrections: (The following items were deleted from the chart) 04:38 04:06 Clindamycin 600 mg IM once ordered. [facility] lg3
[2021-09-27] MEDS ORDERED: MEPERIDINE HCL 50 MG/ML ONE (04:36)
--- NOTE | 2021-09-27 04:40 | ER ---
Nurse's Notes [facility] Name: Daisy Guevara Age: 36 yrs Sex: Female : 1985 Arrival Date: 09/27/2021 Time: 03:24 Bed 6 Private MD: Paul Cao Diagnosis: Dental procedure status Presentation: 09/27 04:17 Chief complaint: Patient states: I had dental implants placed on and all they lg3 sent me home with for pain is Tylenol 3 and its not working. I'm also taking an antibiotic twice a day but I don't know which one. Coronavirus screen: Client denies travel out of the [place] in the last 14 days. At this time, the client does not indicate any symptoms associated with coronavirus-19. Ebola Screen: No symptoms or risks identified at this time. Initial Sepsis Screen: Does the patient meet any 2 criteria? No. Patient's initial sepsis screen is negative. Does the patient have a suspected source of infection? No. Patient's initial sepsis screen is negative. Risk Assessment: Do you want to hurt yourself or someone else? Patient reports no desire to harm self or others. Onset of symptoms was September 25, 2021. 04:17 Method Of Arrival: Ambulatory lg3 04:17 Acuity: FLORINDA 4 lg3 Triage Assessment: 04:22 General: Appears in no apparent distress. comfortable, Behavior is calm, cooperative. lg3 Pain: Complains of pain in left jaw and left cheek. EENT: Oral mucosa is moist. post surgical changes noted. Neuro: No deficits noted. Level of Consciousness is awake, alert, obeys commands, Oriented to person, place, time, situation. Cardiovascular: No deficits noted. Denies chest pain, shortness of breath, Capillary refill < 3 seconds Clubbing of nail beds is absent JVD is absent Patient's skin is warm and dry. Respiratory: No deficits noted. Airway is patent Trachea midline Respiratory effort is even, unlabored, Respiratory pattern is regular, symmetrical, Breath sounds are clear bilaterally. GI: No deficits noted. No signs and/or symptoms were reported involving the gastrointestinal system. Abdomen is round non-distended, Bowel sounds present X 4 quads. Abd is soft and non tender X 4 quads. : No deficits noted. No signs and/or symptoms were reported regarding the genitourinary system. Derm: No deficits noted. No signs and/or symptoms reported regarding the dermatologic system. Skin is intact, is healthy with good turgor, Skin is dry, Skin temperature is warm. Musculoskeletal: No deficits noted. No signs and/or symptoms reported regarding the musculoskeletal system. Circulation, motion, and sensation intact. Range of motion: intact in all extremities. Historical: - Allergies: 04:22 EGG/POULTRY; lg3 - PMHx: 04:22 Anxiety; Depression; High Cholesterol; Hypothyroidism; lg3 - PSHx: 04:22 dental; lg3 - Immunization history:: Adult Immunizations up to date, Client reports having NOT received the Covid vaccine. - Social history:: Smoking status: Patient denies any tobacco usage or history of. Patient uses alcohol, street drugs. - Family history:: not pertinent. Screenin:24 Abuse screen: Denies threats or abuse. Denies injuries from another. Nutritional lg3 screening: No deficits noted. Tuberculosis screening: No symptoms or risk factors identified. Fall Risk None identified. Assessment: 04:24 General: see triage assessment . lg3 Vital Signs: 04:19 BP 128 / 100; Pulse 82; Resp 17; Temp 98.2(O); Pulse Ox 95% on R/A; Weight 103.42 kg ll3 (R); Height 5 ft. 7 in. (170.18 cm) (R); 04:19 Body Mass Index 35.71 (103.42 kg, 170.18 cm) ll3 Martin Coma Score: 04:02 Eye Response: spontaneous(4). Verbal Response: oriented(5). Motor Response: obeys yadi commands(6). Total: 15. 04:05 Eye Response: spontaneous(4). Verbal Response: oriented(5). Motor Response: obeys yadi commands(6). Total: 15. ED Course: 03:24 Patient arrived in ED. am2 03:24 Paul Cao DO is Private Physician. am2 03:50 Jason Husain MD is Attending Physician. yadi 04:17 Deepali Rea, KACY is Primary Nurse. lg3 04:21 Triage completed. lg3 04:22 Arm band placed on right wrist. lg3 04:24 Patient has correct armband on for positive identification. Bed in low position. Call lg3 light in reach. Client placed on continuous cardiac and pulse oximetry monitoring. NIBP monitoring applied. Door closed. Noise minimized. Warm blanket given. 04:25 No provider procedures requiring assistance completed. Patient did not have IV access lg3 during this emergency room visit. Administered Medications: 04:37 Drug: Clindamycin 300 mg Route: PO; lg3 04:37 Follow up: Response: No adverse reaction lg3 04:38 Drug: Demerol (meperidine) 50 mg Route: IM; Site: left gluteus; lg3 04:38 Follow up: Response: No adverse reaction lg3 04:38 Not Given (Patient Refused): Phenergan (promethazine) 25 mg IM once lg3 04:38 CANCELLED (med not avaliable ): Clindamycin 600 mg IM once lg3 Medication: 04:25 VIS not applicable for this client. lg3 Outcome: 04:07 Discharge ordered by MD. grullno 04:25 Discharged to home ambulatory. lg3 04:25 Condition: stable 04:25 Discharge instructions given to patient, Instructed on discharge instructions, medication usage, Demonstrated understanding of instructions, medications, Prescriptions given X 1. 04:40 Patient left the ED. lg3 Signatures: Jason Husain MD MD cha Moreno, Amanda am2 Deepali Rea, RN RN lg3 Lewis Cruz, RN RN ll3
[2021-09-27 05:29] VITALS: BP 128/100; TEMP 98.2; O2SAT 95
== END 2021-09-27 04:40 | disposition home or self-care (01) ==
LOC: ER 03:23
DX: G89.18 Other acute postprocedural pain (principal); Z98.818 Other dental procedure status; Z91.012 Allergy to eggs; Z91.018 Allergy to other foods
CPT/HCPCS: 96372; 99283; J2175

== ENCOUNTER 2021-10-20 05:58 | Emergency (ER) | payer OTHER ==
[2021-10-20 06:24] LABS: Urine Blood Negative (Negative); Urine Glucose Negative (Negative); Urine Protein 1+ (Negative); Urine Specific Gravity >=1.030 (1.005-1.030)
[2021-10-20 06:34] LABS: Absolute Lymphocytes (CBC) 0.9 K/uL (0.7-4.9); Hematocrit 35.6 % (36.0-45.0); Lymphocytes % 11.5 % (15.3-44.8); MCV 78.6 fL (80-100); MPV 6.5 fL (7.6-11.3); RBC Red Blood Cell Count 4.53 M/uL (3.86-4.86)
[2021-10-20] MEDS ORDERED: MORPHINE 4 MG/ML SYR ONE (06:34)
[2021-10-20] MEDS ORDERED: NA CHLORIDE 0.9% 1,000 ML ONE (06:35)
[2021-10-20] MEDS ORDERED: FAMOTIDINE 20 MG/2 ML VIAL IV ONE (06:35)
[2021-10-20] MEDS ORDERED: ONDANSETRON 4 MG/2 ML VIAL ONE ×2 (06:35→10:03)
[2021-10-20 06:47] LABS: Calcium Oxalate Crystals- Ur Many /HPF (None Seen); Urine Bacteria >50 /HPF (<20); Urine Mucus 3+ /HPF (None Seen); Urine RBC <5 /HPF (None Seen)
[2021-10-20 06:51] LABS: Albumin 3.6 g/dL (3.4-5.0); Bilirubin Total 0.4 mg/dL (0.2-1.0); Potassium 3.8 mmol/L (3.5-5.1); Protein, Total 7.8 g/dL (6.4-8.2)
[2021-10-20] MEDS ORDERED: BISACODYL 10 MG RECTAL SUPP ONE (08:07)
[2021-10-20] MEDS ORDERED: LACTULOSE 20 GM/30 ML UCUP ONE (08:07)
--- NOTE | 2021-10-20 08:11 | RAD REPORT ---
EXAM DESCRIPTION: CT - Abdomen Pelvis W Contrast - 10/20/2021 7:16 am CLINICAL HISTORY: Abdominal pain s/p gastric bypass 10/10/2021 COMPARISON: <Comparisons> TECHNIQUE: Biphasic, helical CT imaging of the abdomen and pelvis was performed following 100 ml non -ionic IV contrast. No oral contrast administered. All CT scans are performed using dose optimization technique as appropriate and may include automated exposure control or mA/KV adjustment according to patient size. FINDINGS: No suspicious findings in the lung bases. The liver, spleen, and pancreas show no suspicious findings. Numerous punctate gallstones are cluster ed on the dependent portion of the gallbladder wall. There additional calcifications at the fundus th at also appear to be tightly clustered punctate gallstones. These appear to be adherent stones along the gallbladder wall rather than gallbladder wall calcifications. No biliary tree dilatation or suspi cion for duct stone. Symmetric renal function is seen with no hydronephrosis or suspicious renal mass. No pyelonephritis o r acute parenchymal process. Urinary bladder is tightly contracted limiting assessment. No bladder ca lculi seen. No adrenal abnormalities. No uterine or left ovarian abnormality. Right ovary contains a 2 centimeter cyst. No acute CONSOLE ASSEMBLER process identified. No gastric dilatation, wall thickening or edema. No abnormality along the gastric bypass staple line. A few dilated small bowel loops are present some of which contain fecalized bowel content. These are proximal small bowel loops with the transition point being the small bowel anastomosis from the bypa ss surgery. There may be persistent wall edema present at this site. There is no edema, fluid or othe r abnormality in the adjacent peritoneal fatty tissues. Moderate stool volume is present filling but not dilating the entirety of the colon. Appendix is normal. No free air, free fluid or inflammatory stranding. No hernia, mass or bulky lymphadenopathy. No suspicious bony findings. IMPRESSION: Several dilated proximal small bowel loops some of which contain fecalized bowel content . No free air, abscess or surgically emergent finding. Small bowel transition point is the small bowel anastomosis from the bypass surgery. There may be per sistent bowel wall edema at this site. Moderate stool volume is present filling but not dilating the entirety of the colon. Multi stone cholelithiasis.
--- NOTE | 2021-10-20 09:25 | ER ---
Nurse's Notes [facility] Name: Daisy Guevara Age: 36 yrs Sex: Female : 1985 Arrival Date: 10/20/2021 Time: 06:01 Bed 18 Private MD: Diagnosis: Other intestinal obstruction-sp gastric bypass, at the SB anastamosis site, surgery 10/10/21;Abdominal pain, unspecified Presentation: 10/20 06:10 Chief complaint: Patient states: PATIENT REPORTS HAVING BACK AND STOMACH PAIN FOR bh1 ALMOST TWO WEEKS. SHE HAD A BYPASS ON 10/10 AND HAS NOT HAD A BM SINCE 10/09. Coronavirus screen: Vaccine status: Patient reports receiving the 2nd dose of the covid vaccine. At this time, the client does not indicate any symptoms associated with coronavirus-19. Ebola Screen: Patient negative for fever greater than or equal to 101.5 degrees Fahrenheit, and additional compatible Ebola Virus Disease symptoms. Initial Sepsis Screen: Does the patient meet any 2 criteria? No. Patient's initial sepsis screen is negative. Does the patient have a suspected source of infection? No. Patient's initial sepsis screen is negative. Risk Assessment: Do you want to hurt yourself or someone else? Patient reports no desire to harm self or others. Onset of symptoms was October 20, 2021. 06:10 Method Of Arrival: Ambulatory [facility] 06:10 Acuity: FLORINDA 3 [facility] Triage Assessment: 06:38 General: Appears in no apparent distress. Behavior is calm, cooperative, appropriate [facility] for age. Pain: Complains of pain in abdomen. GI: Reports lower abdominal pain, upper abdominal pain, constipation, nausea. BINGO CLERK: 06:38 LMP 10/11/2021 [facility] Historical: - Allergies: 06:38 EGG/POULTRY; [facility] 06:38 NKDA; [facility] - PMHx: 06:38 Anxiety; Depression; High Cholesterol; Hypothyroidism; [facility] - PSHx: 06:38 dental; [facility] - Immunization history:: Adult Immunizations up to date. - Social history:: Smoking status: Patient denies any tobacco usage or history of. Screenin:40 Abuse screen: Denies threats or abuse. Nutritional screening: No deficits noted. [facility] Tuberculosis screening: No symptoms or risk factors identified. Fall Risk None identified. Assessment: 06:39 Reassessment: No changes from previously documented assessment. [facility] 07:25 General: Appears comfortable, Behavior is calm, cooperative, Reports not being able to ha1 pass a stool for the past 24 hours and it is causing pain 6/10. Pain: Complains of pain in abdomen Pain does not radiate. Pain at worst was 7 out of 10 on a pain scale. Quality of pain is described as crampy, Pain began 1 day ago. Is intermittent, Alleviated by rest, Aggravated by stool softener. 07:25 Neuro: Level of Consciousness is awake, alert, obeys commands, Oriented to person, ha1 place, time, situation. Cardiovascular: Heart tones S1 S2 present. Respiratory: Airway is patent. GI: Abdomen is non-distended, Bowel sounds present X 4 quads. Abd is soft and non tender Reports lower abdominal pain, in the past 24 hours has been trying to pass a stool but has not been able to. Stated " I had a bowel bypass couple of weeks ago. : No signs and/or symptoms were reported regarding the genitourinary system. EENT: No signs and/or symptoms were reported regarding the EENT system. Derm: Skin is healthy with good turgor, patient reports having a gastric bypass surgery a couple of weeks ago and had an allergic reaction to the glue used at the incision site. Musculoskeletal: Capillary refill < 3 seconds, Range of motion: intact in all extremities. 08:10 Reassessment: Patient and/or family updated on plan of care and expected duration. Pain ha1 level reassessed. Patient is alert, oriented x 3, equal unlabored respirations, skin warm/dry/pink. reports that pain 4/10. 09:40 Reassessment: Patient is alert, oriented x 3, equal unlabored respirations, skin ha1 warm/dry/pink. Patient states symptoms have not improved. attending provider at bedside.. 09:42 Reassessment: order for discontinuation of lactulose placed after Patient had already ha1 received. 10:50 Reassessment: Patient and/or family updated on plan of care and expected duration. Pain ha1 level reassessed. Patient is alert, oriented x 3, equal unlabored respirations, skin warm/dry/pink. Patient denies pain at this time. Patient states feeling better. Patient states symptoms have improved. Vital Signs: 06:10 BP 116 / 78; Pulse 81; Resp 18; Temp 98.1(O); Pulse Ox 100% on R/A; Weight 90.72 kg; 1 Height 5 ft. 7 in. (170.18 cm); Pain 10/10; 07:20 BP 118 / 78; Pulse 80; Resp 16; Pulse Ox 95% on R/A; Pain 5/10; ha1 08:00 BP 104 / 63; Pulse 67; Resp 17 S; Pulse Ox 94% ; Pain 5/10; jg9 09:00 BP 102 / 57; Pulse 65; Resp 18 S; Pulse Ox 94% on R/A; Pain 7/10; jg9 10:00 BP 120 / 79; Pulse 71; Resp 18 S; Pulse Ox 92% on R/A; Pain 9/10; jg9 10:15 BP 110 / 65 LA; Pulse 78; Resp 17; Pulse Ox 93% on R/A; Pain 9/10; jg9 11:45 BP 107 / 70; Pulse 62; Resp 18 S; Pulse Ox 98% on R/A; Pain 0/10; jg9 12:00 BP 91 / 49; Pulse 59; Resp 17 S; Pulse Ox 96% on R/A; jg9 12:45 BP 91 / 52; Pulse 66; Resp 16 S; Pulse Ox 94% on R/A; Pain 0/10; jg9 13:00 BP 104 / 73; Pulse 62; Resp 16 S; Pulse Ox 95% on R/A; jg9 14:15 BP 117 / 63; Pulse 57; Resp 17; Pulse Ox 96% on R/A; jg9 15:00 BP 110 / 58; Pulse 61; Resp 16 S; Pulse Ox 96% on R/A; jg9 16:15 BP 100 / 60; Pulse 60; Resp 16 S; Pulse Ox 95% on R/A; Pain 4/10; jg9 06:10 Body Mass Index 31.32 (90.72 kg, 170.18 cm) [facility] ED Course: 06:01 Patient arrived in ED. bp1 06:03 Zaid Daly DO is Attending Physician. ms3 06:07 Amberly Purdy, KACY is Primary Nurse. 1 06:22 CMP Sent. 1 06:22 Lipase Sent. 1 06:22 Urine Microscopic Only Sent. 1 06:23 CBC with Diff Sent. 1 06:29 Urine collected: clean catch specimen, gustavo colored. 5 06:29 Patient has correct armband on for positive identification. Placed in gown. Bed in low mh5 position. Call light in reach. Side rails up X 1. Warm blanket given. Pulse ox on. NIBP on. 06:30 Initial lab(s) drawn, by ED staff, sent to lab. [facility] 06:38 Triage completed. [facility] 06:38 Arm band placed on. 1 06:40 No apparent distress. Appears restless. Awaiting CT Scan. 1 06:40 No provider procedures requiring assistance completed. Inserted saline lock: 20 gauge bh1 in right antecubital area, using aseptic technique. Blood collected. 07:18 CT Abd/Pelvis - IV Contrast Only In Process Unspecified. EDMT 07:26 Attending Physician role handed off by Zaid Daly DO [place] 07:26 Jason Husain MD is Attending Physician. [place] 16:23 Patient transferred, IV remains in place. jg9 Administered Medications: 06:34 Drug: NS 0.9% 1000 ml Route: IV; Rate: 1 bolus; Site: right antecubital; [facility] 09:30 Follow up: IV Status: Completed infusion; IV Intake: 1000ml j9 06:34 Drug: Pepcid (famotidine) 20 mg Route: IVP; Site: right antecubital; [facility] 10:23 Follow up: Response: No adverse reaction; Nausea unchanged j9 06:34 Drug: Zofran (Ondansetron) 4 mg Route: IVP; Site: right antecubital; 1 07:00 Follow up: Response: No adverse reaction; Nausea unchanged j9 06:35 Drug: morphine 4 mg Route: IVP; Infused Over: 4 mins; Site: right antecubital; [facility] 07:00 Follow up: Response: No adverse reaction; Pain is unchanged, physician notified j9 08:20 Drug: Lactulose 30 grams Volume: 45 ml; Route: PO; ha1 10:14 Follow up: Response: No adverse reaction j9 09:44 Not Given (Patient Refused): Dulcolax (bisacodyl) Suppository 10 mg ND once ha1 10:10 Drug: Zofran (Ondansetron) 4 mg Route: IVP; Site: right antecubital; jg9 11:01 Follow up: Response: No adverse reaction; Nausea is decreased ha1 10:14 Drug: Dilaudid (HYDROmorphone) 1 mg Route: IVP; Site: right antecubital; jg9 11:01 Follow up: Response: No adverse reaction; Pain is decreased ha1 10:20 Drug: Zosyn (piperacillin-tazobactam) 3.375 grams Route: IVPB; Infused Over: 60 mins; jg9 Site: right antecubital; 11:29 Follow up: IV Status: Completed infusion; IV Intake: 100ml jg9 11:29 Drug: Lactated Ringers Solution 1000 ml Route: IV; Rate: 150 ml/hr; Site: right 9 antecubital; Medication: 06:40 VIS not applicable for this client. bh Intake: 09:30 IV: 1000ml; Total: 1000ml. jg9 11:29 IV: 100ml; Total: 1100ml. jg9 Outcome: 09:23 ER care complete, transfer ordered by MD. grullon 16:22 Transferred by ground EMS to [facility], Transfer form completed. jg9 16:22 Condition: good 16:26 Patient left the ED. jg9 Signatures: Dispatcher [employer] EDMS Jason Husain MD MD cha Martinez, Maria 5 Zaid Daly DO DO ms3 Eleanor Barraza Jennifer, RN RN jg9 Airam Lugo RN RN 1 Amberly Purdy RN RN 1
--- NOTE | 2021-10-20 09:25 | EDPHYS ---
Physician Documentation [facility] Name: Daisy Guevara Age: 36 yrs Sex: Female : 1985 Arrival Date: 10/20/2021 Time: 06:01 Bed 18 Private MD: NAYANA Physician Jason Husain HPI: 10/20 06:21 This 36 yrs old Female presents to ER via Unassigned with complaints of Abdominal Pain. ms3 06:21 36-year-old female with no past medical history presents for generalized abdominal pain ms3 that she rates a 10/10 and is unable to describe the pain patient states she is recently had a gastric bypass on [id number]. Patient states she spoke with her surgeon who instructed her to go to [facility]. Patient endorses nausea and constipation. Patient denies vomiting, fevers, chills. 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 - Social history:: Smoking status: Patient denies any tobacco usage or history of. ROS: 06:21 Constitutional: Negative for fever, and chills. Eyes: Negative for injury, pain, ms3 redness, and discharge, Neck: Negative for injury, pain, and swelling, Cardiovascular: Negative for chest pain, and palpitations. Respiratory: Negative for shortness of breath, cough, wheezing, and pleuritic chest pain. 06:21 MS/Extremity: Negative for injury and deformity, Skin: Negative for injury, rash, and discoloration, Neuro: Negative for headache, weakness, numbness, tingling. 06:21 Abdomen/GI: Positive for abdominal pain, nausea, constipation. 06:21 All other systems are negative. Exam: 06:21 Constitutional: This is a well developed, well nourished patient who is awake, alert, ms3 and in no acute distress. Head/Face: Normocephalic, atraumatic. Eyes: Pupils equal round and reactive to light, extra-ocular motions intact. Lids and lashes normal. Conjunctiva and sclera are non-icteric and not injected. Periorbital areas with no swelling, redness, or edema. Neck: Trachea midline, no cervical lymphadenopathy. Supple, full range of motion without nuchal rigidity, or vertebral point tenderness. No Meningismus. Chest/axilla: Normal chest wall appearance and motion. Nontender with no deformity. Cardiovascular: Regular rate and rhythm with a normal S1 and S2. No gallops, murmurs, or rubs. Normal PMI, no JVD. No pulse deficits. Respiratory: Lungs have equal breath sounds bilaterally, clear to auscultation and percussion. No rales, rhonchi or wheezes noted. No increased work of breathing, no retractions or nasal flaring. Skin: Warm, dry with normal turgor. Normal color with no rashes, no lesions, and no evidence of cellulitis. MS/ Extremity: Pulses equal, no cyanosis. Neurovascular intact. Full, normal range of motion. Psych: Awake, alert, with orientation to person, place and time. Behavior, mood, and affect are within normal limits. 06:21 Abdomen/GI: Inspection: abdomen appears normal, Bowel sounds: normal, Palpation: moderate abdominal tenderness. Vital Signs: 06:10 BP 116 / 78; Pulse 81; Resp 18; Temp 98.1(O); Pulse Ox 100% on R/A; Weight 90.72 kg; bh1 Height 5 ft. 7 in. (170.18 cm); Pain 10/10; 07:20 BP 118 / 78; Pulse 80; Resp 16; Pulse Ox 95% on R/A; Pain 5/10; ha1 08:00 BP 104 / 63; Pulse 67; Resp 17 S; Pulse Ox 94% ; Pain 5/10; jg9 09:00 BP 102 / 57; Pulse 65; Resp 18 S; Pulse Ox 94% on R/A; Pain 7/10; jg9 10:00 BP 120 / 79; Pulse 71; Resp 18 S; Pulse Ox 92% on R/A; Pain 9/10; jg9 10:15 BP 110 / 65 LA; Pulse 78; Resp 17; Pulse Ox 93% on R/A; Pain 9/10; jg9 11:45 BP 107 / 70; Pulse 62; Resp 18 S; Pulse Ox 98% on R/A; Pain 0/10; jg9 12:00 BP 91 / 49; Pulse 59; Resp 17 S; Pulse Ox 96% on R/A; jg9 12:45 BP 91 / 52; Pulse 66; Resp 16 S; Pulse Ox 94% on R/A; Pain 0/10; jg9 13:00 BP 104 / 73; Pulse 62; Resp 16 S; Pulse Ox 95% on R/A; jg9 14:15 BP 117 / 63; Pulse 57; Resp 17; Pulse Ox 96% on R/A; jg9 15:00 BP 110 / 58; Pulse 61; Resp 16 S; Pulse Ox 96% on R/A; jg9 16:15 BP 100 / 60; Pulse 60; Resp 16 S; Pulse Ox 95% on R/A; Pain 4/10; jg9 06:10 Body Mass Index 31.32 (90.72 kg, 170.18 cm) bh1 MDM: 06:19 Patient medically screened. ms3 06:21 Differential diagnosis: bowel obstruction, urinary tract infection, Post op pain. ms3 07:26 Patient medically screened. [facility] 08:55 Data reviewed: vital signs, nurses notes, lab test result(s), radiologic studies, plain yadi films. Data interpreted: monitoring engineer: rate is 81 beats/min, rhythm is regular, Pulse oximetry: on room air is 100 %. Counseling: I had a detailed discussion with the patient and/or guardian regarding: the historical points, exam findings, and any diagnostic results supporting the discharge/admit diagnosis, lab results, radiology results, the need to transfer to another facility, for higher level of care, [facility] does not immediately have the required specialist. 10/20 06:20 Order name: CBC with Diff; Complete Time: 07:50 ms3 10/20 06:20 Order name: CMP; Complete Time: 07:50 ms3 10/20 06:20 Order name: Lipase; Complete Time: 07:50 ms3 10/20 06:20 Order name: Urine Microscopic Only; Complete Time: 07:50 ms3 10/20 06:24 Order name: Urine Dipstick-Ancillary; Complete Time: 07:50 EDMS 10/20 06:20 Order name: CT Abd/Pelvis - IV Contrast Only; Complete Time: 08:50 ms3 10/20 06:51 Order name: Urine Culture EDNJ 10/20 09:35 Order name: SARS RAPID [facility] 10/20 06:20 Order name: IV Saline Lock; Complete Time: 06:22 ms3 10/20 06:20 Order name: Labs collected and sent; Complete Time: 06:23 ms3 10/20 06:20 Order name: Urine Dipstick-Ancillary (obtain specimen); Complete Time: 06:23 ms3 10/20 06:20 Order name: Urine Test (obtain specimen); Complete Time: 06:23 ms3 10/20 09:15 Order name: NPO; Complete Time: 10:14 [facility] 10/20 09:18 Order name: Misc. Order: STOP LACTULOSE; Complete Time: 09:42 [facility] Administered Medications: 06:34 Drug: NS 0.9% 1000 ml Route: IV; Rate: 1 bolus; Site: right antecubital; 1 09:30 Follow up: IV Status: Completed infusion; IV Intake: 1000ml j9 06:34 Drug: Pepcid (famotidine) 20 mg Route: IVP; Site: right antecubital; 1 10:23 Follow up: Response: No adverse reaction; Nausea unchanged j9 06:34 Drug: Zofran (Ondansetron) 4 mg Route: IVP; Site: right antecubital; 1 07:00 Follow up: Response: No adverse reaction; Nausea unchanged j9 06:35 Drug: morphine 4 mg Route: IVP; Infused Over: 4 mins; Site: right antecubital; 1 07:00 Follow up: Response: No adverse reaction; Pain is unchanged, physician notified j9 08:20 Drug: Lactulose 30 grams Volume: 45 ml; Route: PO; ha1 10:14 Follow up: Response: No adverse reaction jg9 09:44 Not Given (Patient Refused): Dulcolax (bisacodyl) Suppository 10 mg ME once ha1 10:10 Drug: Zofran (Ondansetron) 4 mg Route: IVP; Site: right antecubital; j9 11:01 Follow up: Response: No adverse reaction; Nausea is decreased ha1 10:14 Drug: Dilaudid (HYDROmorphone) 1 mg Route: IVP; Site: right antecubital; j9 11:01 Follow up: Response: No adverse reaction; Pain is decreased ha1 10:20 Drug: Zosyn (piperacillin-tazobactam) 3.375 grams Route: IVPB; Infused Over: 60 mins; jg9 Site: right antecubital; 11:29 Follow up: IV Status: Completed infusion; IV Intake: 100ml jg9 11:29 Drug: Lactated Ringers Solution 1000 ml Route: IV; Rate: 150 ml/hr; Site: right jg9 antecubital; Disposition Summary: 10/20/21 09:23 Transfer Ordered Transfer Location: [facility] Reason: Higher level of care yadi Condition: Fair yadi Problem: new yadi Symptoms: have improved yadi Accepting Physician: Dr Greco(10/20/21 16:26) jg9 Diagnosis - Other intestinal obstruction - sp gastric bypass, at the SB anastamosis site, [facility] surgery 10/10/21 - Abdominal pain, unspecified yadi Forms: - Medication Reconciliation Form yadi - SBAR form yadi Signatures: Dispatcher [employer] EDJason Spring MD MD cha Sims, Marcus, DO DO ms3 Doris Kong RN RN jg9 Airam Lugo RN RN ha1 Amberly Purdy RN RN 1 Corrections: (The following items were deleted from the chart) 16 09:23 Dr Fannie grullon jg9
[2021-10-20] MEDS ORDERED: NA CHLORIDE 0.9% 100 ML ONE (10:03)
[2021-10-20] MEDS ORDERED: Ringers Lactate 1,000 ML IV ONE (10:03)
[2021-10-20] MEDS ORDERED: HYDROMORPHONE HCL 1 MG/ML INJ ONE (10:03)
[2021-10-20] MEDS ORDERED: PIPERACIL/TAZO 3.375 GM VIAL IV ONE (10:03)
[2021-10-20 10:43] LABS: SARS-CoV-2 Antigen Rapid Res Negative (Negative)
[2021-10-20 17:01] VITALS: TEMP 98.1
[2021-10-20 17:23] VITALS: BP 100/60; O2SAT 95
== END 2021-10-20 16:26 | disposition short-term general hospital (02) ==
LOC: ER 05:58
DX: K56.699 Other intestinal obstruction unspecified as to partial versus complete obstruction (principal); Z98.84 Bariatric surgery status; Z91.012 Allergy to eggs; Z91.018 Allergy to other foods
CPT/HCPCS: 87088; 85025; 87086; 36415; 83690; 80053; 74177; 87811; Q9967; J2543; J1170; J7120; J7030; J2405 ×2; J3490; 81003; 81015; 96361; 96365; 96375; 99285

== ENCOUNTER 2023-09-01 16:29 | Emergency (ER) | payer OTHER, SELFPAY ==
[2023-09-01] MEDS ORDERED: FAMOTIDINE 20 MG/2 ML VIAL IV ONE (17:08)
[2023-09-01] MEDS ORDERED: MORPHINE 4 MG/ML SYR ONE (17:08)
[2023-09-01] MEDS ORDERED: NA CHLORIDE 0.9% 1,000 ML ONE (17:08)
[2023-09-01 17:41] LABS: Absolute Eosinophils 0.2 K/uL (0-0.5); Absolute Lymphocytes (CBC) 2.5 K/uL (0.7-4.9); Absolute Monocytes 0.5 K/uL (0.1-1.3); Absolute Neutrophil 5.2 K/uL (1.8-8.0); Basophils % 0.4 % (0-1.3); Eosinophils % 2.2 % (0-4.4); Hematocrit 38.7 % (36.0-45.0); Hemoglobin 13.4 g/dL (12.0-15.0); Lymphocytes % 29.9 % (15.3-44.8); MCH 30.4 pg (27.0-35.0); MCHC 34.7 g/dL (32.0-36.0); MCV 87.6 fL (80-100); MPV 6.6 fL (7.6-11.3); Neutrophils % 61.5 % (41.7-73.7); Nucleated Red Blood Cells % 0.1 % (0-0); Platelets 263 thou/uL (152-406); RBC Red Blood Cell Count 4.42 M/uL (3.86-4.86)
[2023-09-01 17:43] LABS: Albumin 3.6 g/dL (3.4-5.0); Albumin/Globulin Ratio 1.1 (1.1-1.8); Anion Gap 6.7 mEq/L (5.0-15.0); Bilirubin Total 0.6 mg/dL (0.2-1.0); Globulin 3.2 g/dL (2.3-3.5); Potassium 3.7 mEq/L (3.5-5.1); Protein, Total 6.8 g/dL (6.4-8.2)
--- NOTE | 2023-09-01 17:46 | RAD REPORT ---
EXAM DESCRIPTION: US - Abdomen Exam Limited - 09/01/2023 5:31 pm CLINICAL HISTORY: ABD PAIN COMPARISON: <Comparisons> FINDINGS: The gallbladder demonstrates no gallstones. No pericholecystic fluid or gallbladder wall t hickening. The common bile duct is normal measuring 4 mm. The liver demonstrates no findings of intrahepatic biliary dilatation. IMPRESSION: Unremarkable examination.
[2023-09-01 18:59] LABS: Specific Gravity > 1.030 (1.005-1.030); Urine Bilirubin NEGATIVE (Negative); Urine Blood Negative (Negative); Urine Clarity Clear (Clear); Urine Color Yellow (Yellow); Urine Glucose 1+ (Negative); Urine Ketones NEGATIVE (Negative); Urine Microscopic Reflex YN NO UMIC; Urine Nitrite NEGATIVE (Negative); Urine Protein NEGATIVE (Negative); Urine Urobilinogen Normal (Normal)
--- NOTE | 2023-09-01 19:30 | RAD REPORT ---
EXAM DESCRIPTION: CTAbdomen Pelvis W Contrast - 09/01/2023 7:12 pm CLINICAL HISTORY: Abdominal pain. ABD PAIN COMPARISON: <Comparisons> TECHNIQUE: Biphasic CT imaging of the abdomen and pelvis was performed with 100 ml non-ionic IV cont rast. All CT scans are performed using dose optimization technique as appropriate and may include automated exposure control or mA/KV adjustment according to patient size. FINDINGS: The lung bases are clear.Postsurgical changes are present about the stomach. The liver, spleen, pancreas, adrenal glands and kidneys are within normal limits. Suspected cholelith iasis. No bowel obstruction, free air, free fluid or abscess. There is a large amount of stool retained in t he colon. Fecalization of distal small bowel also noted. The appendix is normal. No evidence of sign ificant lymphadenopathy. No suspicious bony findings. IMPRESSION: Suspected cholelithiasis. Significant stool is retained throughout the colon.
--- NOTE | 2023-09-01 20:03 | ER ---
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 ap3 patient states she was working out, doing sit-ups when the pain started. patient rates the pain as a 10/10 on the pain scale. Coronavirus screen: At this time, the client does not indicate any symptoms associated with coronavirus-19. Ebola Screen: No symptoms or risks identified at this time. Initial Sepsis Screen: Does the patient meet any 2 criteria? No. Patient's initial sepsis screen is negative. Does the patient have a suspected source of infection? No. Patient's initial sepsis screen is negative. Risk Assessment: Do you want to hurt yourself or someone else? Patient reports no desire to harm self or others. Onset of symptoms was September 01, 2023 at 15:47. 16:46 Method Of Arrival: Wheelchair ap3 16:46 Acuity: FLORINDA 3 ap3 Triage Assessment: 16:48 General: Appears uncomfortable, Behavior is anxious, restless. Pain: Complains of pain ap3 in abdomen Pain currently is 10 out of 10 on a pain scale. Neuro: Level of Consciousness is awake, alert, obeys commands, Oriented to person, place, time. Cardiovascular: Patient's skin is warm and dry. Respiratory: Airway is patent Respiratory effort is even, unlabored, Respiratory pattern is regular, symmetrical. GI: Reports lower abdominal pain, upper abdominal pain. 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 - Infectious Disease History:: Denies. - Social history:: Smoking status: Reported history of juuling and/or vaping. - Family history:: not pertinent. Screenin:48 Abuse screen: Denies threats or abuse. Nutritional screening: No deficits noted. ap3 Tuberculosis screening: No symptoms or risk factors identified. 18:20 [facility] ED Fall Risk Assessment (Adult) History of falling in the last 3 months, db including since admission No falls in past 3 months (0 pts) Confusion or Disorientation No (0 pts) Intoxicated or Sedated No (0 pts) Impaired Gait No (0 pts) Mobility Assist Device Used No (0 pt) Altered Elimination No (0 pt) Score/Fall Risk Level 0 - 2 = Low Risk Oriented to surroundings, Maintained a safe environment. Assessment: 17:10 Reassessment: Patient appears in no apparent distress at this time. Patient and/or db family updated on plan of care and expected duration. Pain level reassessed. Patient is alert, oriented x 3, equal unlabored respirations, skin warm/dry/pink. General: Appears in no apparent distress. comfortable, Behavior is calm, cooperative. Pain: Complains of pain in abdomen. Neuro: Level of Consciousness is awake, alert, obeys commands, Oriented to person, place, time, situation. Respiratory: Airway is patent Respiratory effort is even, unlabored, Respiratory pattern is regular, symmetrical. 18:20 Reassessment: Patient appears in no apparent distress at this time. Patient and/or db family updated on plan of care and expected duration. Pain level reassessed. Patient is alert, oriented x 3, equal unlabored respirations, skin warm/dry/pink. Patient states feeling better. Patient states symptoms have improved. 18:50 Reassessment: Patient appears in no apparent distress at this time. Patient and/or db family updated on plan of care and expected duration. Pain level reassessed. Patient is alert, oriented x 3, equal unlabored respirations, skin warm/dry/pink. 20:23 GI: Bowel sounds present X 4 quads. Abd is soft and non tender X 4 quads. cp4 Vital Signs: 16:46 BP 111 / 79; Pulse 84; Resp 17; Pulse Ox 100% ; Weight 65.77 kg; Height 5 ft. 7 in. ; ap3 Pain 10/10; 17:08 BP 116 / 68; Pulse 67; Resp 18; Pulse Ox 100% on R/A; db 18:00 BP 117 / 70; Pulse 68; Resp 18; Pulse Ox 100% on R/A; db 19:57 BP 108 / 51; Pulse 80; Resp 18; Pulse Ox 100% ; cp4 16:46 Body Mass Index 22.71 (65.77 kg, 170.18 cm) ap3 16:46 Pain Scale: Adult ap3 ED Course: 16:40 Patient arrived in ED. mr 16:41 Arabella Vidal, HERMILO [facility]. kb 16:41 Jason Husain MD is Attending Physician. kb 16:43 Attending Physician role handed off by Jason Husain MD ms3 16:43 Zaid Daly DO is Attending Physician. ms3 16:44 Jason Husain MD is Attending Physician. kb 16:47 Triage completed. ap3 16:48 Arm band placed on right wrist. ap3 17:06 Jocelyn Valera, KACY is Primary Nurse. db 17:06 Initial lab(s) drawn, by al, sent to lab. Inserted saline lock: 20 gauge in left jg11 antecubital area, using aseptic technique. Blood collected. 17:06 CBC with Diff Sent. jg11 17:06 CMP Sent. jg11 17:06 Lipase Sent. jg11 17:23 Patient has correct armband on for positive identification. Bed in low position. Call db light in reach. Side rails up X 1. Pulse ox on. NIBP on. 17:33 US Abdomen Limited In Process Unspecified. EDMS 18:50 Urine collected: clean catch specimen, clear. db 19:07 Report given to KACY LICONA. Warm blanket given. db 19:15 CT Abd/Pelvis - IV Contrast Only In Process Unspecified. EDMS 19:24 Lu Hopkins is Primary Nurse. cp4 20:02 Sidney Tillman MD is Referral Physician. [facility] 20:22 No provider procedures requiring assistance completed. intact, bleeding controlled, No cp4 redness/swelling at site. Pressure dressing applied. 20:23 Provided Education on: constipation. cp4 Administered Medications: 17:12 Drug: Famotidine IVP 20 mg IVP once; dilute with 10 mL 0.9% NaCl; give over 2 minutes db Route: IVP; Site: left antecubital; 19:58 Follow up: Response: No adverse reaction cp4 17:14 Drug: NS 0.9% IV 1000 ml IV at 1 bolus Per protocol; 1000 mL bolus Route: IV; Rate: 1 db bolus; Site: left antecubital; 17:14 Drug: morphine IVP or IV 4 mg IVP once over 4 mins; if needed Route: IVP; Infused Over: db 4 mins; Site: right antecubital; 19:58 Follow up: Response: No adverse reaction cp4 Medication: 20:28 VIS not applicable for this client. cp4 Outcome: 20:02 Discharge ordered by . yadi 20:22 Discharged to home ambulatory, cp4 20:22 Condition: stable 20:22 Discharge instructions given to patient, Instructed on discharge instructions, follow up and referral plans. medication usage, Demonstrated understanding of instructions, follow-up care, medications, Prescriptions given X 5 20:29 Patient left the ED. cp4 Signatures: Dispatcher [employer] EDMS Arabella Vidal, WIND TUNNEL TECHNICIAN-C WIND TUNNEL TECHNICIAN-Ckb Jason Husain MD MD cha Rivera, Mary, Reg Reg mr Elsa Escobar, RN RN ap3 Zaid Daly DO DO ms3 Jocelyn Valera RN RN db Potter, Christina cp4 Tj Bradley jg11
--- NOTE | 2023-09-01 20:03 | EDPHYS ---
Physician Documentation [facility] Name: Daisy Guevara Age: 38 yrs Sex: Female : 1985 Arrival Date: 09/01/2023 Time: 16:29 Bed 17 Private MD: NAYANA Physician Jason Husain HPI: 08/31 16:51 This 38 yrs old Female presents to ER via Wheelchair with complaints of yadi Abdominal Pain. 16:51 The patient presents with abdominal pain in the upper abdomen, in the lower abdomen. yadi Onset: The symptoms/episode began/occurred just prior to arrival. The symptoms do not radiate. Associated signs and symptoms: Pertinent positives: nausea and vomiting. The symptoms are described as crampy. Modifying factors: The symptoms are alleviated by nothing, the symptoms are aggravated by. Severity of pain: At its worst the pain was moderate severe in the emergency department the pain is unchanged. The patient has not experienced similar symptoms in the past. 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 - Infectious Disease History:: Denies. - Social history:: Smoking status: Reported history of juuling and/or vaping. - Family history:: not pertinent. ROS: 16:51 Constitutional: Negative for fever, chills, and weight loss, Eyes: Negative for injury, yadi pain, redness, and discharge, ENT: Negative for injury, pain, and discharge, Neck: Negative for injury, pain, and swelling, Cardiovascular: Negative for chest pain, palpitations, and edema, Respiratory: Negative for shortness of breath, cough, wheezing, and pleuritic chest pain, Back: Negative for injury and pain, : Negative for injury, bleeding, discharge, and swelling, MS/Extremity: Negative for injury and deformity, Skin: Negative for injury, rash, and discoloration, Neuro: Negative for headache, weakness, numbness, tingling, and seizure, Psych: Negative for depression, anxiety, suicide ideation, homicidal ideation, and hallucinations, Allergy/Immunology: Negative for hives, rash, and allergies, Endocrine: Negative for neck swelling, polydipsia, polyuria, polyphagia, and marked weight changes, Hematologic/Lymphatic: Negative for swollen nodes, abnormal bleeding, and unusual bruising, 16:51 Abdomen/GI: Positive for abdominal pain, of the epigastric area, right upper quadrant, left upper quadrant, right lower quadrant and left lower quadrant, Exam: 16:51 Constitutional: This is a well developed, well nourished patient who is awake, alert, yadi and in no acute distress. Head/Face: Normocephalic, atraumatic. Eyes: Pupils equal round and reactive to light, extra-ocular motions intact. Lids and lashes normal. Conjunctiva and sclera are non-icteric and not injected. Cornea within normal limits. Periorbital areas with no swelling, redness, or edema. ENT: Nares patent. No nasal discharge, no septal abnormalities noted. Tympanic membranes are normal and external auditory canals are clear. Oropharynx with no redness, swelling, or masses, exudates, or evidence of obstruction, uvula midline. Mucous membranes moist. Neck: Trachea midline, no thyromegaly or masses palpated, and no cervical lymphadenopathy. Supple, full range of motion without nuchal rigidity, or vertebral point tenderness. No Meningismus. Chest/axilla: Normal chest wall appearance and motion. Nontender with no deformity. No lesions are appreciated. Cardiovascular: Regular rate and rhythm with a normal S1 and S2. No gallops, murmurs, or rubs. Normal PMI, no JVD. No pulse deficits. Respiratory: Lungs have equal breath sounds bilaterally, clear to auscultation and percussion. No rales, rhonchi or wheezes noted. No increased work of breathing, no retractions or nasal flaring. Abdomen/GI: Soft, non-tender, with normal bowel sounds. No distension or tympany. No guarding or rebound. No evidence of tenderness throughout. Back: No spinal tenderness. No costovertebral tenderness. Full range of motion. Skin: Warm, dry with normal turgor. Normal color with no rashes, no lesions, and no evidence of cellulitis. MS/ Extremity: Pulses equal, no cyanosis. Neurovascular intact. Full, normal range of motion. Neuro: Awake and alert, GCS 15, oriented to person, place, time, and situation. Cranial nerves II-XII grossly intact. Motor strength 5/5 in all extremities. Sensory grossly intact. Cerebellar exam normal. Normal gait. Psych: Awake, alert, with orientation to person, place and time. Behavior, mood, and affect are within normal limits. 16:51 Musculoskeletal/extremity: DVT Exam: No signs of deep vein thrombosis. no pain, no swelling, no tenderness, negative Homans' sign noted on exam, no appreciated bluish discoloration, no erythema, no increased warmth, Vital Signs: 16:46 BP 111 / 79; Pulse 84; Resp 17; Pulse Ox 100% ; Weight 65.77 kg; Height 5 ft. 7 in. ; ap3 Pain 10/10; 17:08 BP 116 / 68; Pulse 67; Resp 18; Pulse Ox 100% on R/A; db 18:00 BP 117 / 70; Pulse 68; Resp 18; Pulse Ox 100% on R/A; db 19:57 BP 108 / 51; Pulse 80; Resp 18; Pulse Ox 100% ; cp4 16:46 Body Mass Index 22.71 (65.77 kg, 170.18 cm) ap3 16:46 Pain Scale: Adult ap3 MDM: 16:41 Patient medically screened. yadi 16:57 Differential diagnosis: Cholelithiasis, gastritis, GI Bleed, Mesenteric ischemia or yadi infarction, non-specific abd pain, Peptic Ulcer Disease, Perf. Gastric Ulcer, Peritonitis, Pyelonephritis, Ureterolithiasis, urinary tract infection. Data reviewed: vital signs, nurses notes, lab test result(s), radiologic studies, CT scan, ultrasound. Consideration of Admission/Observation Escalation of care including admission/observation considered. I considered the following discharge prescriptions or medication management in the emergency department Medications were administered in the Emergency Department. See MAR. Independent interpretation of the following test(s) in the Emergency Department CT Scan: My interpretation is ct ab/pelvis and usg. Test considered but Not performed: MRI: no mrcp. 08/31 16:44 Order name: CBC with Diff; Complete Time: 18:33 ms3 08/31 16:44 Order name: CMP; Complete Time: 18:33 ms3 08/31 16:44 Order name: Lipase; Complete Time: 18:33 ms3 08/31 16:44 Order name: Test, Urine; Complete Time: 20:01 ms3 08/31 16:44 Order name: Urinalysis w/ reflexes; Complete Time: 20:01 ms3 08/31 16:44 Order name: CT Abd/Pelvis - IV Contrast Only; Complete Time: 20:01 ms3 08/31 16:47 Order name: US Abdomen Limited; Complete Time: 18:33 [facility] 08/31 16:44 Order name: IV Saline Lock; Complete Time: 17:06 ms3 08/31 16:44 Order name: Labs collected and sent; Complete Time: 17:06 ms3 Administered Medications: 17:12 Drug: Famotidine IVP 20 mg IVP once; dilute with 10 mL 0.9% NaCl; give over 2 minutes db Route: IVP; Site: left antecubital; 19:58 Follow up: Response: No adverse reaction cp4 17:14 Drug: NS 0.9% IV 1000 ml IV at 1 bolus Per protocol; 1000 mL bolus Route: IV; Rate: 1 db bolus; Site: left antecubital; 17:14 Drug: morphine IVP or IV 4 mg IVP once over 4 mins; if needed Route: IVP; Infused Over: db 4 mins; Site: right antecubital; 19:58 Follow up: Response: No adverse reaction cp4 Disposition Summary: 09/01/23 20:02 Discharge Ordered Notes: Location: Home yadi Problem: new yadi Symptoms: have improved yadi Condition: Stable yadi Diagnosis - Abdominal pain, unspecified yadi - Vomiting yadi - Constipation yadi Followup: yadi - With: Private Physician - When: 2 - 3 days - Reason: Recheck today's complaints, Re-evaluation by your physician Followup: yadi - With: Sidney Tillman MD - When: 2 - 3 days - Reason: Recheck today's complaints, Re-evaluation by your physician Discharge Instructions: - Discharge Summary Sheet yadi - Abdominal Pain, Adult yadi - Constipation, Adult yadi - Constipation, Adult, [id number] yadi - Abdominal Pain, Adult, [id number] yadi - Vomiting, Adult yadi Forms: - Medication Reconciliation Form yadi - Antibiotic Education yadi - Prescription Opioid Use yadi - Patient Portal Instructions [facility] - Leadership Thank You Letter [facility] Prescriptions: - ondansetron 4 mg Oral Tablet,disintegrating - take 1 tablet ORAL route every 6-8 hours for 5 days; 20 tablet; Refills: 0, yadi Product Selection Permitted - Dulcolax (bisacodyl) 10 mg Rectal suppository - insert 1 suppository RECTAL route daily for 5 days; 5 suppository; Refills: 0, yadi Product Selection Permitted - Protonix 40 mg Oral Tablet - take 1 tablet ORAL route once daily; 30 tablet; Refills: 0, Product Selection yadi Permitted - Lactulose 10 gram/15 mL Oral Solution - take 30 milliliters ORAL route once daily; 300 milliliter; Refills: 0, Product yadi Selection Permitted - dicyclomine 10 mg/5 mL Oral solution - take 10 milliliters ORAL route 4 times per day; 200 milliliter; Refills: 0, yadi Product Selection Permitted Signatures: Dispatcher [employer] EDMS Jason Husain MD MD cha Prokisch, Amanda RN RN ap3 Zaid Daly DO DO ms3 Jocelyn Valrea, RN RN Lu Koo cp4 Corrections: (The following items were deleted from the chart) 16:44 16:44 CBC+H.LAB.BRZ ordered. EDMS EDMS 16:44 16:44 COMPREHENSIVE METABOLIC PANEL+C.LAB.BRZ ordered. EDMS EDMS 16:44 16:44 LIPASE+C.LAB.BRZ ordered. EDMS EDMS 16:44 16:44 Test, Urine+UC.LAB.BRZ ordered. EDMS EDMS 16:44 16:44 Urinalysis+U.LAB.BRZ ordered. EDMS EDMS 16:44 16:44 Abdomen Pelvis W Con+CT.RAD.BRZ ordered. EDMS EDMS 16:48 16:48 Abdomen Limited+US.RAD.BRZ ordered. EDMS EDMS 18:34 18:34 TEST, SERUM+SC.LAB.BRZ ordered. EDMS EDMS
[2023-09-01 20:53] VITALS: O2SAT 100
[2023-09-01 21:08] VITALS: BP 108/51
== END 2023-09-01 20:29 | disposition home or self-care (01) ==
LOC: ER 16:29
DX: R10.13 Epigastric pain (principal); R11.2 Nausea with vomiting, unspecified; K59.00 Constipation, unspecified
CPT/HCPCS: 36415; 74177; 76705; 80053; 81003; 81025; 83690; 85025; 99284; J7030; Q9967

== ENCOUNTER 2025-01-06 18:04 | Emergency (ER) | payer OTHER ==
[2025-01-06] MEDS ORDERED: BUPIVACAINE 0.5% PF 10 ML VIAL ONE (18:41)
[2025-01-06] MEDS ORDERED: LIDOCAINE 1% MPF 5 ML VIAL ONE (18:41)
--- NOTE | 2025-01-06 20:06 | RAD REPORT ---
EXAM: XR Finger-Thumb Left HISTORY: [facility] MAIN PAIN Bed Name: 15 COMPARISON: None TECHNIQUE: 4 radiographic views of the RIGHT hand fingers submitted. FINDINGS: No evidence of acute fracture or dislocation. Joint alignment is maintained. Soft tissue s welling and irregularity along the second digit proximal phalanx. No significant degenerative changes are present. IMPRESSION: No acute bone or joint abnormality. Right second digit soft tissue lacerations.
--- NOTE | 2025-01-06 20:08 | ER ---
Nurse's Notes [facility] Name: Daisy Guevara Age: 39 yrs Sex: Female : 1985 Arrival Date: 01/06/2025 Time: 18:04 Bed 15 Private MD: Diagnosis: Laceration without foreign body of left index finger without damage to nail;Irritant contact dermatitis due to plants, except food Presentation: 01/06 18:11 Chief complaint: Patient states: cut lt hand x 2 nights ago with a knife trying remove dd2 a tag. pt reports she cleaned and dressed wound but the gauze is embedded into the wound now. pt also reports poison sajan all over body x 1 week. Coronavirus screen: At this time, the client does not indicate any symptoms associated with coronavirus-19. Ebola Screen: No symptoms or risks identified at this time. Complicating Factors: There are no complicating factors for this patient. Initial Sepsis Screen: Does the patient meet any 2 criteria? No. Patient's initial sepsis screen is negative. Does the patient have a suspected source of infection? No. Patient's initial sepsis screen is negative. Risk Assessment: Do you want to hurt yourself or someone else? Patient reports no desire to harm self or others. Onset of symptoms was January 04, 2025. 18:11 Method Of Arrival: Ambulatory dd2 18:11 Acuity: FLORINDA 3 dd2 Triage Assessment: 18:14 General: Appears in no apparent distress. uncomfortable, Behavior is calm, cooperative, dd2 appropriate for age. Pain: Complains of pain in palm of left hand. Derm: Wound noted palm of left hand Rash noted that is itchy, red, on left ear, back, chest, abdomen, right arm, left arm, right leg and left leg. Injury Description: Laceration sustained to palm of left hand was sustained 2 days ago. Historical: - Allergies: 18:14 EGG/POULTRY; dd2 - PMHx: 18:14 Anxiety; Depression; High Cholesterol; Hypothyroidism; dd2 - PSHx: 18:14 dental; dd2 - Immunization history:: Adult Immunizations up to date. - Infectious Disease History:: Denies. - Social history:: Smoking status: Patient denies any tobacco usage or history of. Screenin:21 [facility] ED Fall Risk Assessment (Adult) History of falling in the last 3 months, bp including since admission No falls in past 3 months (0 pts) Confusion or Disorientation No (0 pts) Intoxicated or Sedated No (0 pts) Impaired Gait No (0 pts) Mobility Assist Device Used No (0 pt) Altered Elimination No (0 pt) Score/Fall Risk Level 0 - 2 = Low Risk Oriented to surroundings. Abuse screen: Denies threats or abuse. Denies injuries from another. Nutritional screening: No deficits noted. Tuberculosis screening: No symptoms or risk factors identified. Assessment: 18:20 General: SEE TRIAGE NOTE. bp 19:02 General: received report from brain rn, all questions answered. kt5 19:03 General: tech at for pxr. kt5 19:33 Reassessment: Patient appears in no apparent distress at this time. No changes from kt5 previously documented assessment. Patient and/or family updated on plan of care and expected duration. Pain level reassessed. Patient is alert, oriented x 3, equal unlabored respirations, skin warm/dry/pink. Patient states feeling better. 19:55 General: provider at for procedure. kt5 20:33 General: nonadhesive dressing placed to wound, pt tolerated well. kt5 20:36 General: pt did not want to stay for med wait. kt5 Vital Signs: 18:11 BP 128 / 85; Pulse 68; Resp 16; Temp 98.1; Pulse Ox 99% ; Weight 68.04 kg; Height 5 ft. dd2 7 in. ; Pain 0/10; 20:34 BP 122 / 76; Pulse 78; Resp 18; Temp 98.4; Pulse Ox 99% ; Pain 4/10; kt5 18:11 Body Mass Index 23.49 (68.04 kg, 170.18 cm) dd2 18:11 Pain Scale: Adult dd2 20:34 Pain Scale: Adult kt5 ED Course: 18:06 Patient arrived in ED. im 18:07 Jason Pepe PA-C is PHCP. cp 18:07 Osvaldo Veronica MD is Attending Physician. cp 18:14 Triage completed. dd2 18:14 Arm band placed on right wrist. dd2 18:20 Logan Stacy, RN is Primary Nurse. bp 18:21 Patient has correct armband on for positive identification. bp 19:16 XRAY Finger-Thumb Left In Process Unspecified. EDMS 19:33 Assist provider with foreign body removal from right hand. kt5 20:04 Jason Husain MD is Attending Physician. cp 20:34 Provided Education on: follow up and meds. kt5 Administered Medications: 18:43 Drug: Lidocaine Infiltration (1 %) 5 ml 5 ml Infiltration once; to bedside Volume: 5 bp ml; Route: Infiltration; 18:43 Drug: Bupivacaine Infiltration (0.5 %) 10 ml 10 ml Infiltration once Volume: 10 ml; bp Route: Infiltration; 20:32 Drug: MethylPREDNISolone Sodium Succinate IM 80 mg IM once Route: IM; Site: right kt5 deltoid; 20:36 Follow up: Response: No adverse reaction kt5 20:32 Drug: Cephalexin PO 500 mg PO once Route: PO; kt5 20:36 Follow up: Response: No adverse reaction kt5 20:32 Drug: Ibuprofen PO 800 mg PO once Route: PO; kt5 20:35 Follow up: Response: No adverse reaction kt5 Medication: 19:33 VIS not applicable for this client. kt5 Outcome: 20:07 Discharge ordered by MD. cp 20:35 Discharged to home ambulatory, kt5 20:35 Condition: improved 20:35 Discharge instructions given to patient, Instructed on discharge instructions, follow up and referral plans. Demonstrated understanding of instructions, follow-up care, medications, Prescriptions given X 3, 20:37 Patient left the ED. kt5 Signatures: Dispatcher [employer] EDWI Jason Pepe PA-C PA-C cp Peltier, Brian RN KACY bp Kiki Granger DIANA RN RN dd2 Patricia Galvan RN RN kt5
--- NOTE | 2025-01-06 20:08 | EDPHYS ---
Physician Documentation [facility] Name: Daisy Guevara Age: 39 yrs Sex: Female : 1985 Arrival Date: 01/06/2025 Time: 18:04 Bed 15 Private MD: ED Physician Jason Husain HPI: 01/06 18:30 This 39 yrs old Female presents to ER via Ambulatory with complaints of Laceration To cp Hand, Rash. 18:30 The patient has a laceration knife being used to open package. The laceration(s) cp is(are) located on the left index finger. Onset: The symptoms/episode began/occurred 2 day(s) ago. 18:30 Associated signs and symptoms: Pertinent positives: general rash times 1 week after cp exposure to poison katarzyna, Pertinent negatives: heavy bleeding. Historical: - Allergies: 18:14 EGG/POULTRY; dd2 - PMHx: 18:14 Anxiety; Depression; High Cholesterol; Hypothyroidism; dd2 - PSHx: 18:14 dental; dd2 - Immunization history:: Adult Immunizations up to date. - Infectious Disease History:: Denies. - Social history:: Smoking status: Patient denies any tobacco usage or history of. ROS: 18:35 MS/extremity: Positive for laceration, of the left index finger, cp 18:35 Eyes: Negative for injury, pain, redness, and discharge, cp 18:35 Constitutional: Negative for body aches, chills, fever, 18:35 Respiratory: Negative for cough, shortness of breath, wheezing, 18:35 Abdomen/GI: Negative for abdominal pain, vomiting, diarrhea, constipation, 18:35 Skin: Positive for rash, diffusely, 18:35 All other systems are negative, Exam: 18:40 Constitutional: The patient appears in no acute distress, alert, awake, non-toxic, well cp developed, well nourished, 18:40 Head/Face: Normocephalic, atraumatic. cp 18:40 Eyes: Periorbital structures: appear normal, Conjunctiva: normal, no exudate, no injection, Sclera: no appreciated abnormality, Lids and lashes: appear normal, bilaterally, 18:40 ENT: External ear(s): are unremarkable, Nose: is normal, Mouth: Lips: moist, Oral mucosa: moist, Posterior pharynx: Airway: no evidence of obstruction, patent, 18:40 Cardiovascular: Rate: normal, Rhythm: regular, 18:40 Respiratory: the patient does not display signs of respiratory distress, Respirations: normal, no use of accessory muscles, no retractions, 18:40 Musculoskeletal/extremity: Extremities: noted in the left index finger: laceration noted base proximal phalanx with mild swelling and erythema, full AROM, digit neurovascular intact, 18:40 Skin: rash can be described as erythematous, excoriated, papular, and is diffusely located, 18:40 Neuro: Orientation: to person, place \T\ time. Mentation: is normal, Vital Signs: 18:11 BP 128 / 85; Pulse 68; Resp 16; Temp 98.1; Pulse Ox 99% ; Weight 68.04 kg; Height 5 ft. dd2 7 in. ; Pain 0/10; 20:34 BP 122 / 76; Pulse 78; Resp 18; Temp 98.4; Pulse Ox 99% ; Pain 4/10; kt5 18:11 Body Mass Index 23.49 (68.04 kg, 170.18 cm) dd2 18:11 Pain Scale: Adult dd2 20:34 Pain Scale: Adult kt5 MDM: 18:10 Medical Screening Exam initiated cp 19:57 Independent interpretation of the following test(s) in the Emergency Department X-Ray: cp My interpretation is xray left hand negative for fracture. 20:07 Data reviewed: vital signs, nurses notes, radiologic studies, plain films. cp 20:07 Differential diagnosis: superficial laceration, tendon injury, vascular injury. I cp considered the following discharge prescriptions or medication management in the emergency department Medications were administered in the Emergency Department. See MAR. Counseling: I had a detailed discussion with the patient and/or guardian regarding the historical points, exam findings, and any diagnostic results supporting the discharge/admit diagnosis, radiology results, to return to the emergency department if symptoms worsen or persist or if there are any questions or concerns that arise at home. Response to treatment: the patient's symptoms have mildly improved after treatment, and as a result, I will discharge patient. ED course: digital block performed using 5 cc of mixture 1% lidocaine w/o epi and 0.5% Marcaine. wound cleaned, irrigated and dressed. 01/06 18:28 Order name: XRAY Finger-Thumb Left cp Administered Medications: 18:43 Drug: Lidocaine Infiltration (1 %) 5 ml 5 ml Infiltration once; to bedside Volume: 5 bp ml; Route: Infiltration; 18:43 Drug: Bupivacaine Infiltration (0.5 %) 10 ml 10 ml Infiltration once Volume: 10 ml; bp Route: Infiltration; 20:32 Drug: MethylPREDNISolone Sodium Succinate IM 80 mg IM once Route: IM; Site: right kt5 deltoid; 20:36 Follow up: Response: No adverse reaction kt5 20:32 Drug: Cephalexin PO 500 mg PO once Route: PO; kt5 20:36 Follow up: Response: No adverse reaction kt5 20:32 Drug: Ibuprofen PO 800 mg PO once Route: PO; kt5 20:35 Follow up: Response: No adverse reaction kt5 Disposition Summary: 01/06/25 20:07 Discharge Ordered Notes: Location: Home cp Problem: new cp Symptoms: have improved cp Condition: Stable cp Diagnosis - Laceration without foreign body of left index finger without damage to nail cp - Irritant contact dermatitis due to plants, except food cp Followup: cp - With: Private Physician - When: 2 - 3 days - Reason: Worsening of condition Discharge Instructions: - Discharge Summary Sheet cp - Contact Dermatitis cp - Laceration Care, Adult cp - Nonsutured Laceration Care cp - Poison Katarzyna Dermatitis cp - Poison [place] Dermatitis cp Forms: - Medication Reconciliation Form cp - Antibiotic Education cp - Prescription Opioid Use cp - Patient Portal Instructions cp - Leadership Thank You Letter cp Prescriptions: - Cephalexin 500 mg Oral Capsule - take 1 capsule ORAL route every 8 hours for 10 days; 30 capsule; Refills: 0, cp Product Selection Permitted - Ibuprofen 800 mg Oral Tablet - take 1 tablet ORAL route every 8 hours As needed take with food; 30 tablet; cp Refills: 0, Product Selection Permitted - Prednisone 20 mg Oral Tablet - take 3 tablets ORAL route once daily for 5 days; 15 tablet; Refills: 0, Product cp Selection Permitted - Triamcinolone Acetonide 0.5 % Topical cream - apply 1 application TOPICAL route 2 times per day As needed apply to areas of cp rash except face as directed; 45 gram tube; Refills: 0, Product Selection Permitted Addendum: 01/10/2025 07:55 Co-signature as Attending Physician, Jason Husain MD I agree with the assessment and c mcneil plan of care. Signatures: Dispatcher [employer] Jason Vasquez MD MD cha Page, Corey, PA-C PA-C Logan Tai, RN RN bp JESUS WALLER RN RN dd2 Patricia Galvan RN RN kt5
[2025-01-06] MEDS ORDERED: IBUPROFEN 400 MG TAB ONE (20:13)
[2025-01-06] MEDS ORDERED: CEPHALEXIN 250 MG CAP ONE (20:13)
[2025-01-06] MEDS ORDERED: METHYLPREDNISOLONE 125 MG INJ ONE (20:13)
[2025-01-06 20:59] VITALS: O2SAT 99
[2025-01-06 21:03] VITALS: BP 122/76; TEMP 98.4
== END 2025-01-06 20:37 | disposition home or self-care (01) ==
LOC: ER 18:04
DX: S61.211A Laceration without foreign body of left index finger without damage to nail, initial encounter (principal); L24.7 Irritant contact dermatitis due to plants, except food; W26.0XXA Contact with knife, initial encounter
CPT/HCPCS: 73140; 96372; 99284; J2003; J2919